=== PATIENT | male | born 1940 | race Caucasian/White ===

== ENCOUNTER → 2021-07-29 10:04 | Outpatient (BNVA) | payer MEDICARE, SELFPAY | PROVIDERS: PCP Internal Medicine; Visit Provider Urology | DX: R39.12 Poor urinary stream (principal); R97.20 Elevated prostate specific antigen [PSA] | CPT/HCPCS: Q3014 ==

== ENCOUNTER → 2021-09-28 10:44 | Outpatient (BNVA) | payer MEDICARE, OTHER, SELFPAY | PROVIDERS: PCP Internal Medicine; Visit Provider Urology | DX: R39.12 Poor urinary stream (principal); R97.20 Elevated prostate specific antigen [PSA] | CPT/HCPCS: Q3014 ==

== ENCOUNTER → 2022-03-30 11:12 | Outpatient (BNVA) | payer MEDICARE, OTHER, SELFPAY | PROVIDERS: PCP Internal Medicine; Visit Provider Urology | DX: R39.12 Poor urinary stream (principal); R97.20 Elevated prostate specific antigen [PSA] | CPT/HCPCS: 51798; 99212 ==

== ENCOUNTER 2023-05-24 09:09 | Outpatient (AMB) | payer MEDICARE, OTHER, SELFPAY ==
--- NOTE | 2023-05-24 09:18 | MHC.OFFVIS ---
Intake Intake Visit Reasons: PSA Follow Up(set) Intake Note: Patient is present for Follow Up PSA Urology Med: Tamsulosin Antibiotic Allergy: None Blood Thinner: Clopidogrel Pharmacy: [facility] Allergies No Known Allergies Allergy (Verified 05/24/23 09:22) HPI HPI Comments History of Present Illness Details Fredy MUNSON is a very pleasant male. He is a patient of Dr Bond. He is seen for the following urologic conditions. - elevated PSA - weakness of stream Twelve month follow-up A continues with effective emptying Low PSA can be deferred for 2 years Discussed his great grandchildren down in [place] Elevated PSA/Abnormal CHERYL:? PSA remains low Continue response to tamsulosin ? Laboratory investigations include?a total PSA ?07/25 0.5,?04/25 0.9, 07/28 0.9. 05/30 1.4 ? Imaging investigations include? a transrectal ultrasound ?Yes ? Date ?04/2018 ? Individualized Prostate Cancer Risk Calculator?>10% high risk.? A TRUS biopsy? has ?been performed and is negative 04/24 ? PSA at biopsy?23 ? Overall symptoms are?mild.? His prior IPSS was?mild.? Associated conditions? diabetes ?Yes - insulin for several years - medications include Invokana ? dyslipidemia ?No ? dysuria ?No ? erectile dysfunction ?Yes ? Therapeutic plan 12 month follow-up PVR PFSH Medical History Arthritis Diabetes mellitus, type II Surgical History History of surgery Review of Systems Const Denies chills and Denies fever(s) Card Reports no additional complaints and Denies syncope Resp Denies cough GI Denies abdominal pain and Denies heartburn Reports as per HPI and Denies change in libido Neuro Denies syncope Psych Denies change in libido Endo Denies change in libido Physical Exam Const General: cooperative, healthy appearing, comfortable and no acute distress Orientation/consciousness: patient oriented x3 HEENT Face and sinus: Yes normal facial exam Mouth: moist mucous membranes Neck Neck: Yes normal visual inspection, Yes full ROM and Yes trachea midline Chest Chest palpation & inspection: normal inspection of the chest Resp Effort & Inspection: normal respiratory effort, able to speak in complete sentences and no respiratory distress GI Inspection: Yes normal to inspection Back/Spine/Pelvis Cervical Spine: normal cervical lordosis Thoracic/Lumbar Spine: thoracic and lumbar spine normal to inspection Skin General skin exam: no rashes or lesions noted Neuro General: patient oriented x3, gait normal, tone normal and moves all extremities Extrem General: Yes normal to inspection and Yes capillary refill normal Assessment & Plan Assessment & Plan (1) Weak urinary stream: Code(s): R39.12 - Poor urinary stream (2) Elevated prostate specific antigen [PSA]: Code(s): R97.20 - Elevated prostate specific antigen [PSA] Plan 12 month follow-up Patient Instructions: Imaging studies, laboratory and physical exam results were discussed and reviewed in detail. No major barriers to patient understanding were identified. An opportunity to ask questions regarding the treatment plan was provided. All questions were answered. The patient expressed understanding and agreement with the above treatment plan. The patient is aware they should contact our office by phone for worsening of their current condition or the appearance of new urologic symptoms. Compliance is encouraged with any medications and followup testing that is ordered. It is a privilege to participate in the urologic care of your patient. If you have any questions or concerns regarding treatment for the above conditions, or other urologic issues, please do not hesitate to contact me. The office telephone contact is [phone]. This note is constructed using voice recognition software. While every effort has been made to ensure accuracy contract administration manager errors may have been included. Yours sincerely, Dr Pranav Mcghee MD, DEV [facility] - Urology Providers of Expert, Compassionate Care for the Genitourinary System Coding Level of Care Code Est Pt Level 4 (15662) Diagnoses Weak urinary stream R39.12 Elevated prostate specific antigen [PSA] R97.20
== END 2023-05-24 09:37 | disposition home or self-care (01) ==
PROVIDERS: PCP Internal Medicine; Visit Provider Urology
DX: R39.12 Poor urinary stream (principal); R97.20 Elevated prostate specific antigen [PSA]
CPT/HCPCS: 99213

== ENCOUNTER → 2023-05-24 09:09 | Outpatient (BNVA) | payer MEDICARE, OTHER, SELFPAY | PROVIDERS: PCP Internal Medicine; Visit Provider Urology ==

== ENCOUNTER 2024-05-27 14:29 | Outpatient (AMB) | payer MEDICARE, OTHER, SELFPAY ==
--- NOTE | 2024-05-27 14:34 | A.OFFVIS_ITS ---
Intake Visit Reasons: 1Y Follow Up-PVR Intake Note: Patient is present for 1Y Follow Up PVR Urology Med: Tamsulosin Antibiotic Allergy: None Blood Thinner: Clopidogrel Duplicating Machine Operator Required: No Allergies No Known Allergies Allergy (Verified 05/27/24 14:35) HPI Comments Details: Fredy MUNSON is a very pleasant male. He is a patient of Dr Bond. He is seen for the following urologic conditions. - elevated PSA - weakness of stream Twelve month follow-up PVR 0 cc UA positive glucose - on Invokana Low PSA can be deferred for 2 years Discussed his great grandchildren down in [place] Elevated PSA/Abnormal CHERYL:? PSA remains low Continue response to tamsulosin ? Laboratory investigations include?a total PSA ?07/25 0.5,?04/25 0.9, 07/28 0.9. 05/30 1.4 ? Imaging investigations include? a transrectal ultrasound ?Yes ? Date ?04/2018 ? Individualized Prostate Cancer Risk Calculator?>10% high risk.? A TRUS biopsy? has ?been performed and is negative 04/24 ? PSA at biopsy?23 ? Overall symptoms are?mild.? His prior IPSS was?mild.? Associated conditions? diabetes ?Yes - insulin for several years - medications include Invokana ? dyslipidemia ?No ? dysuria ?No ? erectile dysfunction ?Yes ? Therapeutic plan 12 month follow-up PVR PFSH Medical History Arthritis Diabetes mellitus, type II Elevated prostate specific antigen [PSA] Weak urinary stream Surgical History History of surgery Review of Systems Const Denies chills and Denies fever(s) Card Reports no additional complaints and Denies syncope Resp Denies cough GI Denies abdominal pain and Denies heartburn Reports as per HPI and Denies change in libido Neuro Denies syncope Psych Denies change in libido Endo Denies change in libido Physical Exam Const General: cooperative, healthy appearing, comfortable and no acute distress Orientation/consciousness: patient oriented x3 HEENT Face and sinus: Yes normal facial exam Mouth: moist mucous membranes Neck Neck: Yes normal visual inspection, Yes full ROM and Yes trachea midline Chest Chest palpation & inspection: normal inspection of the chest Resp Effort & Inspection: normal respiratory effort, able to speak in complete sentences and no respiratory distress GI Inspection: Yes normal to inspection Back/Spine/Pelvis Cervical Spine: normal cervical lordosis Thoracic/Lumbar Spine: thoracic and lumbar spine normal to inspection Skin General skin exam: no rashes or lesions noted Neuro General: patient oriented x3, gait normal, tone normal and moves all extremities Extrem General: Yes normal to inspection and Yes capillary refill normal Results AMB Urinalysis, Automated UA Leukoctes 0 Lakeshia/uL Last Edit by CATHY Thompson on 05/27/24 14:47 UA Nitrite Negative Last Edit by CATHY Thompson on 05/27/24 14:47 UA Urobilinogen 0.2 mg/dL Last Edit by CATHY Thompson on 05/27/24 14:4 7 UA Protein 0 mg/dL Last Edit by CATHY Thompson on 05/27/24 14:47 UA pH 5.0 Last Edit by CATHY Thompson on 05/27/24 14:47 UA Blood 0 Amauri/uL Last Edit by CATHY Thompson on 05/27/24 14:47 UA Specific [place] 1.015 Last Edit by CATHY Thompson on 05/27/24 14: 47 UA Ketone Negative Last Edit by CATHY Thompson on 05/27/24 14:47 UA Bilirubin 0 mg/dL Last Edit by CATHY Thompson on 05/27/24 14:47 UA Glucose 1000 mg/dL Last Edit by CATHY Thompson on 05/27/24 14:47 Results Reviewed Results Reviewed: Laboratory Last Values Urine pH (Auto) 5.0 08/20/24 14:46 Specific [place] (Auto) 1.015 05/27/24 14:46 Urine Protein (Auto) 0 mg/dL 05/27/24 14:46 Glucose (UA)(Auto) 1000 mg/dL 05/27/24 14:46 Urine Ketones (Auto) Negative 05/27/24 14:46 Urine Blood (Auto) 0 Amauri/uL 05/27/24 14:46 Urine Nitrite (Auto) Negative 05/27/24 14:46 Urine Bilirubin (Auto) 0 mg/dL 05/27/24 14:46 Urine Urobilinogen (Auto) 0.2 mg/dL 05/27/24 14:46 Leukocyte Esterase (Auto) 0 Lakeshia/uL 05/27/24 14:46 Assessment & Plan Assessment & Plan (1) Elevated prostate specific antigen [PSA]: Code(s): R97.20 - Elevated prostate specific antigen [PSA] Category: Medical (2) Weak urinary stream: Code(s): R39.12 - Poor urinary stream Category: Medical Plan Yearly follow-up PSA Orders: Orders AMB Urinalysis Automated 05/27/24 Z13.9 - Encounter for screening, unspecified Prostate Specific Antigen 364 Days R97.20 - Elevated prostate specific antigen [PSA] Patient Instructions: Imaging studies, laboratory and physical exam results were discussed and reviewed in detail. No major barriers to patient understanding were identified. An opportunity to ask questions regarding the treatment plan was provided. All questions were answered. The patient expressed understanding and agreement with the above treatment plan. The patient is aware they should contact our office by phone for worsening of their current condition or the appearance of new urologic symptoms. Compliance is encouraged with any medications and followup testing that is ordered. It is a privilege to participate in the urologic care of your patient. If you have any questions or concerns regarding treatment for the above conditions, or other urologic issues, please do not hesitate to contact me. The office telephone contact is [phone]. This note is constructed using voice recognition software. While every effort has been made to ensure accuracy vp treasurer errors may have been included. Yours sincerely, Dr Pranav Mcghee MD, DEV [facility] - Urology Providers of Expert, Compassionate Care for the Genitourinary System Coding Level of Care Code Est Pt Level 4 (30868) Diagnoses Elevated prostate specific antigen [PSA] R97.20 Weak urinary stream R39.12
== END 2024-05-27 15:03 | disposition home or self-care (01) ==
PROVIDERS: PCP Internal Medicine; Visit Provider Urology
DX: R97.20 Elevated prostate specific antigen [PSA] (principal); R39.12 Poor urinary stream
CPT/HCPCS: 99214

== ENCOUNTER → 2024-05-27 14:29 | Outpatient (BNVA) | payer MEDICARE, OTHER, SELFPAY | PROVIDERS: PCP Internal Medicine; Visit Provider Urology | DX: R97.20 Elevated prostate specific antigen [PSA] (principal); R39.12 Poor urinary stream | CPT/HCPCS: 81003; 99212 ==

== ENCOUNTER 2025-05-29 14:28 | Outpatient (AMB) | payer MEDICARE, OTHER, SELFPAY ==
--- NOTE | 2025-05-29 14:37 | MHC.OFFVIS ---
Intake Visit Reasons: 1y/PSA Intake Note: Patient is present for 1Y Follow Up Urology Med: Tamsulosin Antibiotic Allergy: None Blood Thinner: none Proof Carrier Required: No Accompanied by: Self / Same As Patient Allergies No Known Allergies Allergy (Verified 05/29/25 14:38) HPI Comments Details: Fredy MUNSON is a very pleasant male. He is a patient of Dr Bond. He is seen for the following urologic conditions. - elevated PSA - weakness of stream Twelve month follow-up Expresses weak stream less than 12 in Switch from tamsulosin to doxazosin 4 mg Plan bladder ultrasound Three-month follow-up office uroflow Discussed his great grandchildren down in [place] Elevated PSA/Abnormal CHERYL:? PSA remains low Continue response to tamsulosin ? Laboratory investigations include?a total PSA ?07/25 0.5,?04/25 0.9, 07/28 0.9. 05/30 1.4 ? Imaging investigations include? a transrectal ultrasound ?Yes ? Date ?04/2018 ? Individualized Prostate Cancer Risk Calculator?>10% high risk.? A TRUS biopsy? has ?been performed and is negative 04/24 ? PSA at biopsy?23 ? Overall symptoms are?mild.? His prior IPSS was?mild.? Associated conditions? diabetes ?Yes - insulin for several years - medications include Invokana ? dyslipidemia ?No ? dysuria ?No ? erectile dysfunction ?Yes ? Therapeutic plan 12 month follow-up PVR PFSH Medical History Arthritis Diabetes mellitus, type II Elevated prostate specific antigen [PSA] Weak urinary stream Surgical History History of surgery Review of Systems Const Denies chills and Denies fever(s) Card Reports no additional complaints and Denies syncope Resp Denies cough GI Denies abdominal pain and Denies heartburn Reports as per HPI and Denies change in libido Neuro Denies syncope Psych Denies change in libido Endo Denies change in libido Physical Exam Const General: cooperative, healthy appearing, comfortable and no acute distress Orientation/consciousness: patient oriented x3 HEENT Face and sinus: Yes normal facial exam Mouth: moist mucous membranes Neck Neck: Yes normal visual inspection, Yes full ROM and Yes trachea midline Chest Chest palpation & inspection: normal inspection of the chest Resp Effort & Inspection: normal respiratory effort, able to speak in complete sentences and no respiratory distress GI Inspection: Yes normal to inspection Back/Spine/Pelvis Cervical Spine: normal cervical lordosis Thoracic/Lumbar Spine: thoracic and lumbar spine normal to inspection Skin General skin exam: no rashes or lesions noted Neuro General: patient oriented x3, gait normal, tone normal and moves all extremities Extrem General: Yes normal to inspection and Yes capillary refill normal Assessment & Plan Assessment & Plan (1) Weak urinary stream: Code(s): R39.12 - Poor urinary stream Category: Medical Plan Switch alpha-peyton Plan ultrasound bladder Three-month follow-up uroflow Orders: Orders US bladder Today R39.12 - Poor urinary stream Medications: New doxazosin 4 mg PO BEDTIME 90 tabs 0RF 90 days R39.12 - Poor urinary stream Discontinued tamsulosin Discontinued Reason: Doctor's Order 0.4 mg PO BEDTIME 90 days 90 caps 3RF R39.12 - Poor urinary stream Patient Instructions: This note is constructed using voice recognition software. While every effort has been made to ensure accuracy set up mechanic heading machines errors may have been included. Imaging studies, laboratory and physical exam results were discussed and reviewed in detail. No major barriers to patient understanding were identified. An opportunity to ask questions regarding the treatment plan was provided. All questions were answered. The patient expressed understanding and agreement with the above treatment plan. The patient is aware they should contact our office by phone for worsening of their current condition or the appearance of new urologic symptoms. Compliance is encouraged with any medications and followup testing that is ordered. It is a privilege to participate in the urologic care of your patient. If you have any questions or concerns regarding treatment for the above conditions, or other urologic issues, please do not hesitate to contact me. The office telephone contact is [phone]. Sincerely, Dr Pranav Mcghee MD, DEV [facility] - Urology Compassionate Specialist Care for the Genitourinary System Coding Level of Care Code Est Pt Level 4 (33647) Diagnoses Weak urinary stream R39.12
== END 2025-05-29 15:10 | disposition home or self-care (01) ==
LOC: HO.HUSH 14:28
PROVIDERS: PCP Internal Medicine; Visit Provider Urology
DX: R39.12 Poor urinary stream (principal)
CPT/HCPCS: 99214

== ENCOUNTER → 2025-05-29 14:28 | Outpatient (BNVA) | payer MEDICARE, OTHER, SELFPAY | PROVIDERS: PCP Internal Medicine; Visit Provider Urology | DX: R39.12 Poor urinary stream (principal) | CPT/HCPCS: 99212 ==

== ENCOUNTER 2025-08-24 12:53 | Outpatient (REF) | payer MEDICARE, OTHER, SELFPAY ==
--- NOTE | ~2025-08-24 | US_ITS ---
CLINICAL HISTORY: R39.12 - Poor urinary stream Ultrasound prostate Comparison: None provided Findings: Heterogeneous prostate without focal lesion. Prostate volume 26 mL. Prostate 3.8 x 3.2 x 4.1 cm. Impression: No significant abnormality US bladder Comparison: None provided Findings: Small amount of internal debris in bladder. Question prior infection or hemorrhage. No other significant abnormality. Prevoid volume 214 mL. Post void volume 34 mL. Bilateral ureteral jets visualized. Impression: Minimal debris in bladder lumen Otherwise unremarkable This document has been electronically signed by: Kendall Cárdenas MD on 08/24/2025 20:05:13
--- OUTSIDE RECORDS SUMMARY | 2025-08-25 01:34 | XMS_ITS | Data Portability ---
Author Organization [facility], [facility] Specimen Accessioner Address [address] [place] [address] Assessment No assessment recorded. Plan of Treatment Reminders Order Date Submit Date Provider Last Modified By Organization Details Last Modified Time Details Appointments None record ed. Lab None record ed. Referral None record ed. Procedures None record ed. Surgeries None record ed. Imaging None record ed. Medication Orders None record ed. Patient TargetsNo targets recorded. Patient InstructionsNo instructions recorded. Reason for Referral None Reported. Results Created Date Observation Date Name Description Value Unit Range Abnormal Flag Note LastModifiedBy Organization Detail LastModifiedTime 09/28/20 20 09/30/2020 SARS CoV 2 RNA (COVI D-19) , QL, legal aide-P CR, respi rator y speci men sars cov 2 RNA NOT DETECT ED not detect ed normal A Not Detec rimma (nega tive) test resul t for this test means that SARS- CoV-2 RNA was not prese nt in the speci men above the limit of detec tion. A negat estevan resul t does not rule out the possi bilit y of COVID -19 and shoul d not be used as the sole basis for treat ment or patie nt manag ement decis ions. If COVID -19 is still suspe cted, based on expos ure histo ry toget her with other clini rocío findi ngs, re-te sting shoul d be consi dered in consu ltati on with publi c healt autho ritie s. Labor atory test resul ts shoul d alway s be consi dered in the shahla xt of clini rocío obser vatio ns and epide miolo gical data in noemi cosme a final diagn osis and patie nt manag ement decis ions. Pleas e revie w the Fact Sheet s and FDA autho rized label ing avail able for healt h care provi ders and patie nts using the gary robledo websi efren: https ://ww w.que stdia gnost ics.c om/ho me/Co vid-1 9/HCP /Ques tIVD/ fact- sheet .html https ://ww w.que stdia gnost ics.c om/ho me/Co vid-1 9/Pat ients / [facility] IVD/f act-s heet. html This test has been autho rized by the FDA under an Emerg ency Use Autho rizat ion (EUA) for use by autho rized labor atori es. Due to the curre nt publi c healt h emerg ency, [facility] is recei ving a high volum e of sampl es from a wide varie ty of swabs and media for COVID -19 testi ng. In order to serve patie nts durin g this publi c healt h crisi s, sampl es from appro priat e clini rocío sourc es are being teste d. Negat estevan test resul ts deriv ed from speci mens recei jazz in non-c ommer ciall y manuf actur ed viral colle ction and trans port media , or in media and sampl e colle ction kits not yet autho rized by FDA for COVID -19 testi ng shoul d be cauti ously evalu ated and the patie nt poten tiall y subje cted to extra preca ution s such as addit ional clini rocío monit oring , inclu ding colle ction of an addit ional speci men. Metho dolog y: Nucle ic Acid Ampli ficat ion Test (NAAT ) inclu shi RT-PC R or TMA Addit ional infor katarina cueva about COVID -19 can be found at the [facility] websi te: www.Q uestD iagno stics .com/ Covid 19. Not Available [employer] [place] [facility] [address], [place], [address], 09/30/2020 08:29:23 Result Notes None recorded. Problems No Known Problems Medical Equipment None Reported. Allergies No known drug allergies Medications Name Sig Start Date Stop Date Status Note LastModified by Organization Details LastModified Time doxycycline hyclate 100 mg capsule active Not Available Not Available Not Available isosorbide mononitrate ER 30 mg tablet,extended release 24 hr TK 1 T PO BID active Not Available Not Available No t Available clopidogrel 75 mg tablet active Not Available Not Available No t Available pantoprazole 20 mg tablet,delayed release active Not Available Not Available Not Available tamsulosin 0.4 mg capsule active Not Available Not Available N ot Available telmisartan 80 mg tablet active Not Available Not Available No t Available nitroglycerin 0.4 mg sublingual tablet active Not Available Not Available Not Available metoprolol succinate ER 25 mg tablet,extended release 24 hr active Not Available Not Availabl e Not Available oxycodone 5 mg tablet TAKE 1 TABLET BY MOUTH EVERY 6 HOURS NEEDED FOR SEVERE PAIN active Not Available Not Available No t Available rosuvastatin 20 mg tablet active Not Available Not Available No t Available rosuvastatin 40 mg tablet active Not Available Not Available No t Available BD Ultra-Fine Short Pen Needle 31 gauge x 5/16 active Not Available Not Available Not Available febuxostat 40 mg tablet active Not Available Not Available No t Available BD Ultra-Fine Nickie Pen Needle 32 gauge x 5/32 active Not Available Not Available Not Available Repatha Syringe 140 mg/mL subcutaneous syringe active Not Available Not Available Not Available Repatha SureClick 140 mg/mL subcutaneous pen injector ADM 1 ML SC Q 2 WKS active Not Available Not Available No t Available Invokamet XR 150 mg-1,000 mg tablet, extended release active Not Available Not Available Not Available Soliqua 100/33 100 unit-33 mcg/mL subcutaneous insulin pen active Not Available Not Available Not Available Accu-Chek Guide test strips active Not Available Not Available Not Available Vitals Date Recorded Heart rate Oxygen saturation Oxygen saturation in Arterial blood by Pulse oximetry Body temperature Provider Name and Address Organization Details Last Updated DateTime 09/28/2020 99 /min 97 % 97 % 97 [degF] Sunni mazariegos, [employer] [address] [place], [address], [place] [facility] [employer] [facility] 0 10:58:26 Social History None recorded. Functional Status None recorded. Mental Status None recorded. Family History Nothing Reported. Medical History No medical history recorded. Immunizations Vaccine Type Date Status Note Provider Nam e and Address Organization Details Recorded Time COVID-19, mRNA, LNP-S, PF, 30 mcg/0.3 mL dose, miguel-sucrose 01/20/2022 completed SIMA Raines- [address] [place], [address], [facility] - [facility] 01/20/2022 14:42:02 Past Encounters Encounter ID Performer Location Encounter Start Date Encounter Closed Date Diagnosis/Indication Diagnosis SNOMED-CT Code Diagnosis ICD10 Code Diagnosis IMO Codes Diagnosis Note [id number] Reji Moss MD [facility] [address],[place] [address] 09/28/2020 10:57:52 09/28/2020 14:25:33 Coronavirus infection suspected 380487219 Z03.818 r/o COVID-19 Pt tolerated the nasal swab test well- states no concerns [id number] SIMA Kern [facility] [address],[place] [address] 01/20/2022 14:27:35 01/20/2022 14:42:19 Administration of SARS-CoV-2 antigen vaccine 072066818 Z23 Patient tolerated the injection well, no immediate reaction occurred. Explained the common side effects associated with the vaccine. Vaccinatio n card updated and booster is complete at this time. Health Concerns Section Related Observation LastModified by Organization Detai ls LastModified Time None Recorded Concern Status LastModified by Organization Details LastModified Time None Recorded Advance Directives Directive None Recorded Payers Insurance Date Sequence Insurance Name Policy Number Policy Perry Covered Member ID Perry Member ID Guarantor Name 01/19/2022 MEDICARE A-[place]: [facility] Fredy Vinson [id number] Fredy Vinson 01/24/2022 1 MEDICARE B-[place]: [employer] Fredy Vinson [id number] Fredy Vinson Notes Date Note Type Note Provider Name a nd Address Organization Details Recorded Time 09/28/2020 text/html ROS as noted in the HPI Pt is here outside the [facility] for a covid nasal swab test. Pt denies exposure and covid/cold/flu symptoms. Kim Felix, [facility] [address] [place], [address], [facility] [employer] [facility] 09/28/2020 14:13:16 01/20/2022 text/html ROS as noted in the HPI Patient is present at the [facility] in [place] for a covid Pfizer booster vaccine. It has been at least 4 months since the patient s last dose. Pre-vaccination screening reviewed with the patient Nikkie Alfaro, [facility]- [address] [place], [address], [facility] [employer] 01/20/2022 14:42:07
== END 2025-08-24 12:54 | disposition home or self-care (01) ==
LOC: HO.HMGCX 12:53
PROVIDERS: PCP Internal Medicine; Visit Provider Urology
DX: R39.12 Poor urinary stream (principal)
CPT/HCPCS: 76857

== ENCOUNTER → 2025-08-24 12:56 | Outpatient (BNV) | payer MEDICARE, OTHER, SELFPAY | PROVIDERS: PCP Internal Medicine; Visit Provider Radiology Diagnostic Radiology | DX: R39.12 Poor urinary stream (principal) | CPT/HCPCS: 76857 ==

== ENCOUNTER 2025-09-01 13:52 | Outpatient (AMB) | payer MEDICARE, OTHER, SELFPAY ==
--- OUTSIDE RECORDS SUMMARY | 2024-07-08 16:47 | XMS_ITS | Encounter Summary ---
Author Organization [facility] Address [address] [place] [address] Care Team Providers Care Plant Manager Name Role Phone Alexander Hoover MD Primary Care Provider [phone] Encounter Details Date Type Department Care Team (Latest Contact Info) Description 07/08/2024 5:47 PM EDT Hospital Encounter TH HISTORIC ENCOUNTERS EASTERN CONVERSION ONLY Alexander Hoover MD [address] [address] Primary osteoarthritis, right ankle and foot Social History Tobacco Use Types Packs/Day Years Used Date Smoking Tobacco: Former Cigarettes 1 Q uit: 10/08/1983 Smokeless Tobacco: Never Alcohol Use Standard Drinks/Week Comments Yes 0 (1 standard drink = 0.6 oz pur e alcohol) rare Sex and Gender Information Value Date Recorded Sex Assigned at Not on file Legal Sex Male 6:26 PM EST Gender Identity Not on file Sexual Orientation Not on file documented as of this encounter Plan of Treatment Not on file documented as of this encounter Procedures Procedure Name Priority Date/Time Associated Diagnosis Comments CR FOOT RT MIN 3 VIEWS Routine 07/09/2024 8:05 AM EDT Primary osteoarthritis, right ankle and foot documented in this encounter Results * CR FOOT RT MIN 3 VIEWS (07/09/2024 8:05 AM EDT) Anatomical Region Laterality Modality Radiographic Kacy ging 07/08/2024 5:54 PM EDT Narrative 07/09/2024 8:05 AM EDT [facility] Diagnostic Imaging Department [address] [place] [address] Patient: NATALYA MUNSON Zahira Akhtar./Age/Sex: 1940 - 83 - M Unit#: [id number] Location/Status: SPDIGEN/REG CLI Mnemonic/Ordering Site: FOOTRT/SPDI Ordering Physician: ALEXANDER HOOVER MD CR Foot RT Min 3 Views - 07/08/241802 Report Status:Signed HISTORY: The patient is an 83-year-old diabetic male with provided history of a possible foreign body at the medial plantar aspect of the right foot. FINDINGS: AP, lateral, and oblique views of the right foot are obtained. No prior study is available for comparison. This examination demonstrates no radiopaque foreign body. No fracture or dislocation is seen. Moderate osteoarthritis of the first interphalangeal joint is noted with joint space narrowing and marginal osteophytes. No soft tissue abnormality is seen. IMPRESSION: No radiopaque foreign body is demonstrated. No acute bony abnormality. There is moderate osteoarthritis of the first interphalangeal joint. Code 72508 Dictating Physician: DELMI CRAFT MD Electronically Signed by: DELMI CRAFT MD Dic Date/Time: 07/09/24802 Sign date/Time: 07/09/24804 Procedure Note Delmi Craft MD - 08/05/2024 [facility] Diagnostic Imaging Department [address] [place] [id number] Patient: NATALYA MUNSON Zahira LuceroB./Age/Sex: 1940 - 83 - M Unit#: [id number] Location/Status: SPDIGEN/REG CLI Mnemonic/Ordering Site: FOOTRT/SPDI Ordering Physician: ALEXANDER HOOVER MD CR Foot RT Min 3 Views - 07/08/24 3346 Report Status:Signed HISTORY: The patient is an 83-year-old diabetic male with provided historyof a possible foreign body at the medial plantar aspect of the right foot. FINDINGS: AP, lateral, and oblique views of the right foot are obtained.No prior study is available for comparison. This examination demonstratesno radiopaque foreign body. No fracture or dislocation is seen. Moderate osteoarthritis of the first interphalangeal joint is noted with jointspace narrowing and marginal osteophytes. No soft tissue abnormality is seen. IMPRESSION: No radiopaque foreign body is demonstrated. No acute bony abnormality. There is moderate osteoarthritis of the firstinterphalangeal joint. Code 39198 Dictating Physician: DELMI CRAFT MD Electronically Signed by: DELMI CRAFT MD Dic Date/Time: 07/09/24802 Sign date/Time: 07/09/24804 Alexander Hoover MD IMG XR PROCEDURES Final Result documented in this encounter Visit Diagnoses Diagnosis Primary osteoarthritis, right ankle and foot documented in this encounter Care Teams Plant Manager Relationship Specialty Start Date End Date Alexander Hoover MD PCP - General Internal Medicine 12/28/11 03/04/25 documented as of this encounter
--- OUTSIDE RECORDS SUMMARY | 2025-05-05 08:15 | XMS_ITS ---
Author Organization [facility] Address [address] [phone] Care Team Providers Care Occupational Health Physician Name Role Phone Alexander Hoover Primary Care Provider ALEXANDER HOOVER MD Unavailable Unavailable REASON FOR VISIT med list update Medications Medication SIG (Take, Route, Frequency, Duration) Notes Start Date End Date Status Pantoprazole Sodium 20 mg TAKE 1 TABLET DAILY Active Invokamet XR 150-1000 mg TAKE 2 TABLETS ONCE DAILY WITH THE MORNING MEAL Active Dexcom G7 Tobacco Sampler - as directed 07/07/2024 Active BD Pen Needle Short U/F 31G X 8 MM DIRECTED ONCE DAILY; Duration: 31 days Active Rosuvastatin Calcium 20 mg TAKE 1 TABLET DAILY Active Isosorbide Mononitrate ER 30 MG 1 tablet in the morning Orally Once a day; Duration: 90 days Active Dexcom G7 Sensor - apply a new sensor every 10 days; Duration: 30 days 05/07/2024 Active Ozempic (1 MG/DOSE) 4 MG/3ML 1 mg Subcutaneous Once a Week 06/17/2024 Active Xarelto 2.5 mg TAKE 1 TABLET TWICE A DAY Active Lantus SoloStar 100 UNIT/ML 36 units Subcutaneous daily; Duration: 90 days 06/27/2024 Active Aspirin 81 MG 1 tablet Orally Once a day Active Ferrous Sulfate 325 (65 Fe) MG 1 tablet Orally Once a day; Duration: 30 day(s) Active Accu-Chek Softclix Lancets - TEST TWO TIMES A DAY DIRECTED; Duration: 90 Dx:E11.22 Active Accu-Chek Guide - TEST 3 TIMES A DAY A S DIRECTED; Duration: 99 Dx: E11.22 Active Metoprolol Succinate ER 25 MG 0.5 Tablet Orally Once a day 08/28/2016 Active Vitamin B12 1000 MCG 1 tablet Orally Onc e a day; Duration: 30 day(s) Active Accu-Chek Stacie - as directed In Vitro 11/09/2020 Active Nitroglycerin 0.4 MG as directed Sublingual Once a day Active Magnesium 400 MG 1 capsule with a jg l Orally Once a day Active Vitamin D 125 MCG (5000 UT) 1 capsule Orally Once a day Active Testosterone 40.5 MG/2.5GM (1.62%) 2 packets to skin in the morning to shoulder, upper arms or abdomen Transdermal Once a day; Duration: 90 days 11/04/2024 Active Repatha 140 MG/ML 1 mL Subcutaneous Every 2 Weeks; Duration: 90 days Active Colcrys 0.6 MG 1 tablet Orally bid; Duration: 60 days Not-Taking Encounters Encounter Location Date Provider Diagnosis Alexander Hoover MD [address] [place] [address] [place] [phone] 05/05/2025 Alexander Hoover Plan Of Treatment Next Appt Details Provider Name:Alexander Hoover , 12/24/2025 01:00:00 PM, [address] [place] [address], [phone], Provider Name:Alexander Hoover , 02/23/2026 02:00:00 PM, [address] [place] [address], [phone], Progress Notes * Fredy MUNSON MDOB: 9 (85 yo M)Acc No.[id number]:05/05/2025 Progress Note Patient: Radha OSMINFredy Provider: Everardo Hoover MD :1940 A ge:84 Y S ex:Male Date:05/05/2025 Address:[address] [place] [address] [id number] Subjective: * Chief Complaints: * 1 . Med list update. * Medical History: * Medications: T aking Vitamin D 125 MCG (5000 UT) Capsule 1 capsule Orally Once a day , Taking Magnesium 400 MG Capsule 1 capsule with a meal Orally Once a day , Taking Vitamin B12 1000 MCG Tablet Extended Release 1 tablet Orally Once a day , Taking Accu-Chek Stacie - Device as directed In Vitro , Taking Nitroglycerin 0.4 MG Tablet Sublingual as directed Sublingual Once a day , Taking Metoprolol Succinate ER 25 MG Tablet Extended Release 24 Hour 0.5 Tablet Orally Once a day , Taking Aspirin 81 MG Tablet 1 tablet Orally Once a day , Taking Ferrous Sulfate 325 (65 Fe) MG Tablet Delayed Release 1 tablet Orally Once a day , Taking Accu-Chek Softclix Lancets - Miscellaneous TEST TWO TIMES A DAY DIRECTED , Notes to Pharmacist: Dx:E11.22, Taking Accu-Chek Guide - Strip TEST 3 TIMES A DAY DIRECTED , Notes to Pharmacist: Dx: E11.22, Taking Dexcom G7 Sensor - Miscellaneous apply a new sensor every 10 days , Taking Ozempic (1 MG/DOSE) 4 MG/3ML Solution Pen-injector 1 mg Subcutaneous Once a Week , Taking Xarelto 2.5 mg Tablet TAKE 1 TABLET TWICE A DAY , Taking Lantus SoloStar 100 UNIT/ML Solution Pen-injector 36 units Subcutaneous daily , Taking Isosorbide Mononitrate ER 30 MG Tablet Extended Release 24 Hour 1 tablet in the morning Orally Once a day , Taking Dexcom G7 Tobacco Sampler - Device as directed , Taking BD Pen Needle Short U/F 31G X 8 MM Miscellaneous DIRECTED ONCE DAILY , Taking Rosuvastatin Calcium 20 mg Tablet TAKE 1 TABLET DAILY , Taking Pantoprazole Sodium 20 mg Tablet Delayed Release TAKE 1 TABLET DAILY , Taking Invokamet XR 150-1000 mg Tablet Extended Release 24 Hour TAKE 2 TABLETS ONCE DAILY WITH THE MORNING MEAL , Taking Testosterone 40.5 MG/2.5GM (1.62%) Gel 2 packets to skin in the morning to shoulder, upper arms or abdomen Transdermal Once a day , Taking Repatha 140 MG/ML Solution Prefilled Syringe 1 mL Subcutaneous Every 2 Weeks , Not-Taking/PRN Colcrys 0.6 MG Tablet 1 tablet Orally bid Objective: * Vitals: Past Vitals:* 03/19/2025 Temp:97.4F, HR:71/min, Wt:16 4lbs, BMI:23.53Index, Ht:70in, Oxygen sat %:96% * 12/18/2024 Temp:96.6F, HR:55/min, Wt:16 3lbs, BMI: 23.39 Index, Ht: 70 in, Oxygen sat %:98% * 11/04/2024 Temp:96.2F, HR:88/min, BP:Si tting Right Arm: 120/64mm Hg, Wt:165lbs, BMI:23.67Index, Ht:70in, Oxygen sat %:96% Assessment: Plan: * Treatment: * Images: Billing Information: * Visit Code: * Procedure Codes: * Electronic signature of Ashli Hoover MD on 09/01/2025 at 05:46 PM EST Sign off status: Pending * Provider: Everardo Hoover MD Date: 0 05/05/2025 Generated for Price simeon/Gurvinder/Geoff on: 1 11/01/2024 05:46 PM EST
--- OUTSIDE RECORDS SUMMARY | 2025-05-20 09:30 | XMS_ITS ---
Author Organization [facility] Address [address] [phone] Care Team Providers Care Porcelain Enamel Laborer Name Role Phone Alexander Hoover Primary Care Provider ALEXANDER HOOVER MD Unavailable Unavailable REASON FOR VISIT 1m f/u MOCA Encounters Encounter Location Date Provider Diagnosis Alexander Hoover MD [address] [place] [address] [place] [phone] 05/20/2025 Alexander Hoover Plan Of Treatment Next Appt Details Provider Name:Alexander Hoover , 12/24/2025 01:00:00 PM, [address] [place] [address], [phone], Provider Name:Alexander Hoover , 02/23/2026 02:00:00 PM, [address] [place] [address], [phone], Progress Notes * Fredy MUNSON MDOB: 9 (85 yo M)Acc No.[id number]:05/20/2025 Patient: Radha Fredy SOLORIO Provider: Everardo Hovoer MD Resource:Lynsey Liang :1940 A ge:84 Y S ex:Male Date:05/20/2025 Address: [address], [id number] Subjective: * Chief Complaints: * 1 . 1m f/u MOCA. * Medical History: Objective: * Vitals: Past Vitals:* 05/11/2025 Temp:96.8F, HR:51/min, BP:Si tting Right Arm: 114/58mm Hg, Wt:158lbs, BMI:22.67Index, Ht:70in, Oxygen sat %:98% * 03/19/2025 Temp:97.4F, HR:71/min, Wt:16 4lbs, BMI:23.53Index, Ht:70in, Oxygen sat %:96% * 12/18/2024 Temp:96.6F, HR:55/min, Wt:16 3lbs, BMI: 23.39 Index, Ht: 70 in, Oxygen sat %:98% Assessment: Plan: * Treatment: * Images: Billing Information: * Visit Code: * Procedure Codes: * Electronic signature of Ashli Hoover MD on 09/01/2025 at 05:45 PM EST Sign off status: Pending * Provider: Everardo Hoover MD Date: 0 05/20/2025 Generated for Price simeon/Gurvinder/Geoff on: 11/01/2024 05:45 PM EST
--- OUTSIDE RECORDS SUMMARY | 2025-07-30 08:30 | XMS_ITS ---
Author Organization [facility] Address [address] [id number] Care Team Providers Care Cdl Service Technician Name Role Phone Alexander Hoover Primary Care Provider ALEXANDER HOOVER MD Unavailable Unavailable REASON FOR VISIT 2m f/u Diabetes Encounters Encounter Location Date Provider Diagnosis Alexander Hoover MD [facility] [address] [place] [phone] 07/30/2025 Alexander Hoover Plan Of Treatment Next Appt Details Provider Name:Alexander Hoover , 12/24/2025 01:00:00 PM, [address] [place] [address], [address], [phone], Provider Name:Alexander Hoover , 02/23/2026 02:00:00 PM, [address] [place] [address], [phone], Progress Notes * Fredy MUNSON MDOB: (85 yo M)Acc No.[id number]:07/30/2025 Progress Notes Patient: Radha SOLORIO Fredy Rodriges Provider: Everardo Hoover MD :1940 A ge:84 Y S ex:Male Date:07/30/2025 Address: [address], [id number] Subjective: * Chief Complaints: * 1 . 2m f/u Diabetes. * Medical History: Objective: * Vitals: Past [...] Pending * Provider: Everardo Hoover MD Date: Generated for Price simeon/Gurvinder/Geoff on: 11/01/2024 05:45 PM EST
--- NOTE | 2025-09-01 14:06 | A.OFFVIS_ITS ---
Intake Visit Reasons: Uroflow/US Intake Note: Patient is present for URO FLOW Urology Med: Testosterone Doxazosin Antibiotic Allergy: None Blood Thinner: none Imaging : Bladder Ultrasound 08/24/25 PVR: 23 mls Operating Room Manager Required: No Accompanied by: Self / Same As Patient Allergies No Known Allergies Allergy (Verified 05/29/25 14:38) HPI Comments Details: Fredy MUNSON is a very pleasant male. He is a patient of Dr Bond. He is seen for the following urologic conditions. - elevated PSA - weakness of stream Follow-up from uroflow Q max 18, average flow 5. Voided volume 125 cc. Prolonged void time. below 50th percentile average flow however Q max was within acceptable range. Doxazosin 4 mg Bladder ultrasound effective emptying. Prostate volume 25 cc. He wants to continue with current medication Feels it is an improvement He just found out his daughter was in a MVA and is in ICU. The great granddaughter had been in the car. Elevated PSA/Abnormal CHERYL:? PSA remains low Continue response to tamsulosin ? Laboratory investigations include?a total PSA ?07/25 0.5,?04/25 0.9, 07/28 0.9. 05/30 1.4 ? Imaging investigations include? a transrectal ultrasound ?Yes ? Date ?04/2018 ? Individualized Prostate Cancer Risk Calculator?>10% high risk.? A TRUS biopsy? has ?been performed and is negative 04/24 ? PSA at biopsy?23 ? Overall symptoms are?mild.? His prior IPSS was?mild.? Associated conditions? diabetes ?Yes - insulin for several years - medications include Invokana ? dyslipidemia ?No ? dysuria ?No ? erectile dysfunction ?Yes ? Therapeutic plan 12 month follow-up PVR PFS Medical History Arthritis Diabetes mellitus, type II Elevated prostate specific antigen [PSA] Weak urinary stream Surgical History History of surgery Review of Systems Const Denies chills and Denies fever(s) Card Reports no additional complaints and Denies syncope Resp Denies cough GI Denies abdominal pain and Denies heartburn Reports as per HPI and Denies change in libido Neuro Denies syncope Psych Denies change in libido Endo Denies change in libido Physical Exam Const General: cooperative, healthy appearing, comfortable and no acute distress Orientation/consciousness: patient oriented x3 HEENT Face and sinus: Yes normal facial exam Mouth: moist mucous membranes Neck Neck: Yes normal visual inspection, Yes full ROM and Yes trachea midline Chest Chest palpation & inspection: normal inspection of the chest Resp Effort & Inspection: normal respiratory effort, able to speak in complete sentences and no respiratory distress GI Inspection: Yes normal to inspection Back/Spine/Pelvis Cervical Spine: normal cervical lordosis Thoracic/Lumbar Spine: thoracic and lumbar spine normal to inspection Skin General skin exam: no rashes or lesions noted Neuro General: patient oriented x3, gait normal, tone normal and moves all extremities Extrem General: Yes normal to inspection and Yes capillary refill normal Office Procedures Post Void Residual Post Residual Void Post Void Residual (PVR): 23 [id number] Void Residual by ultrasound Assessment & Plan Assessment & Plan (1) Elevated prostate specific antigen [PSA]: Code(s): R97.20 - Elevated prostate specific antigen [PSA] Category: Medical (2) Weak urinary stream: Code(s): R39.12 - Poor urinary stream Category: Medical Plan Twelve month follow-up Medications: Refilled doxazosin 4 mg PO BEDTIME 90 tabs 3RF 90 days R39.12 - Poor urinary stream Patient Instructions: This note is constructed using voice recognition software. While every effort has been made to ensure accuracy shipwright apprentice errors may have been included. Imaging studies, laboratory and physical exam results were discussed and reviewed in detail. No major barriers to patient understanding were identified. An opportunity to ask questions regarding the treatment plan was provided. All questions were answered. The patient expressed understanding and agreement with the above treatment plan. The patient is aware they should contact our office by phone for worsening of their current condition or the appearance of new urologic symptoms. Compliance is encouraged with any medications and followup testing that is ordered. It is a privilege to participate in the urologic care of your patient. If you have any questions or concerns regarding treatment for the above conditions, or other urologic issues, please do not hesitate to contact me. The office telephone contact is [phone]. Sincerely, Dr Pranav Mcghee MD, DEV [facility] - Urology Compassionate Specialist Care for the Genitourinary System Coding Level of Care Code Complex visit Add On G2211 Diagnoses Elevated prostate specific antigen [PSA] R97.20 Weak urinary stream R39.12 CPT Codes Post Residual Void - PVR CPT Code: 00765-Kbod Void Residual by ultrasound ([id number])
--- OUTSIDE RECORDS SUMMARY | 2025-09-01 17:45 | XMS_ITS | Patient Health Record ---
Author Organization [facility] Address [address] [place] [id number] Care Team Providers Care Burlapper Name Role Phone [facility] Primary Care Provider ALEXANDER HOOVER MD Unavailable Unavailable Allergies Allergen (clinical drug ingredient) Drug/Non Drug Allergy documented on EMR Reaction Allergy Type Onset Date Status atorvastatin Atorvastatin Calcium Headache Drug Allergy Active lisinopril Lisinopril cough Drug Allergy Activ e rosuvastatin Rosuvastatin Calcium Headache Drug Allergy Active Results Component Value Reference Range Notes Hemoglobin A1C Reviewed date:12/21/2024 12:37:38 PM Interpretation: Performing Lab: Notes/Report: DCA Travis ([facility] Eagle)Alexander MD Lot: [id number] Urinalysis, Complete-[id number] Reviewed date:12/31/2024 06:20:19 PM Interpretation: Performing Lab:[facility], [address] [place] [address], [place], Phone - [phone], Director - Debra Notes/Report: Test(s) 800384-Zeawoalxignr, Total, LC/MS; [id number] was developed and its performance characteristics determined by [facility]. It has not been cleared or approved by the Food and Drug Administration. Test(s) 882857-Givgseyymsqd, Total, LC/MS; [id number] was developed and its performance characteristics determined by [facility]. It has not been cleared or approved by the Food and Drug Administration. Specific [place] 1.026 1.005-1.030 pH 5.5 5.0-7.5 Urine-Color Yellow Yellow Appearance Clear Clear WBC Esterase Negative Negative Protein Negative Negative/Trace Glucose 3+ Negative Ketones Negative Negative Occult Blood Negative Negative Bilirubin Negative Negative Urobilinogen,Semi-Qn 0.2 0.2-1.0 mg/dL Nitrite, Urine Positive Negative Microscopic Examination See below: Micr oscopic was indicated and was performed. WBC None seen 0 - 5 /hpf RBC None seen 0 - 2 /hpf Epithelial Cells (non renal) None seen 0 - 10 /hpf Casts None seen None seen /lpf Mucus Threads Present Not Estab. Bacteria None seen None seen/Few CBC With Differential/Platel et-[id number] Reviewed date:12/31/2024 06:20:19 PM Interpretation: Performing Lab:[facility] [place], [address], [place], Phone - [phone], Director - Debra Notes/Report: Test(s) 975674-Aedmnvhxbtdi, Total, LC/MS; [id number]-[id number] was developed and its performance characteristics determined by [facility]. It has not been cleared or approved by the Food and Drug Administration. WBC 6.5 3.4-10.8 x10E3/uL RBC 5.30 4.14-5.80 x10E6/uL Hemoglobin 14.7 13.0-17.7 g/dL Hematocrit 45.9 37.5-51.0 % MCV 87 79-97 fL MCH 27.7 26.6-33.0 pg MCHC 32.0 31.5-35.7 g/dL RDW 13.6 11.6-15.4 % Platelets 128 150-450 x10E3/uL Neutrophils 69 Not Estab. % Lymphs 22 Not Estab. % Monocytes 8 Not Estab. % Eos 1 Not Estab. % Basos 0 Not Estab. % Neutrophils (Absolute) 4.4 1.4-7.0 x10E3/uL Lymphs (Absolute) 1.4 0.7-3.1 x10E3/uL Monocytes(Absolute) 0.5 0.1-0.9 x10E3/uL Eos (Absolute) 0.1 0.0-0.4 x10E3/uL Baso (Absolute) 0.0 0.0-0.2 x10E3/uL Immature Granulocytes 0 Not Estab. % Immature Grans (Abs) 0.0 0.0-0.1 x10E3/uL Vitamin D, 27-Gborowr-[id number] Reviewed date:12/31/2024 06:20:20 PM Interpretation: Performing Lab:[facility] [place], [address] [facility], [place], Phone - [phone], Director - Debra Notes/Report: Test(s) 902087-Wjggxwthaiik, Total, LC/MS; [id number]-[id number] was developed and its performance characteristics determined by [facility]. It has not been cleared or approved by the Food and Drug Administration. Vitamin D, 25-Hydroxy 50.7 30.0-100.0 ng/mL Vitamin D deficiency has been defined by the [place] of Medicine and an Endocrine Society practice guideline as a level of serum 25-OH vitamin D less than 20 ng/mL (1,2). The Endocrine Society went on to further define vitamin D insufficiency as a level between 21 and 29 ng/mL (2). 1. IOM ([place] of Medicine). 2010. Dietary reference intakes for calcium and D. [place]: The National Academies Press. 2. Clarence MF, Sera TERRY, Haley BASSETT, et al. Evaluation, treatment, and prevention of vitamin D deficiency: an Endocrine Society clinical practice guideline. JCEM. 2010; 96(7):1911-30. Comp. Metabolic Panel (14)-3 97120 Reviewed date:12/31/2024 06:20:20 PM Interpretation: Performing Lab:[facility] [place], [address] [facility], [place], Phone - [phone], Director - Debra Notes/Report: Test(s) 237629-Wlzixojkpzpg, Total, LC/MS; [id number] was developed and its performance characteristics determined by [facility]. It has not been cleared or approved by the Food and Drug Administration. Glucose 143 70-99 mg/dL BUN 19 8-27 mg/dL Creatinine 1.29 0.76-1.27 mg/dL eGFR 54 >59 mL/min/1.73 BUN/Creatinine Ratio 15 10-24 Sodium 145 134-144 mmol/L Potassium 4.8 3.5-5.2 mmol/L Chloride 106 96-106 mmol/L Carbon Dioxide, Total 19 20-29 mmol/L Calcium 9.9 8.6-10.2 mg/dL Protein, Total 7.4 6.0-8.5 g/dL Albumin 5.1 3.7-4.7 g/dL Globulin, Total 2.3 1.5-4.5 g/dL Bilirubin, Total 0.4 0.0-1.2 mg/dL Alkaline Phosphatase 51 44-121 IU/L AST (SGOT) 28 0-40 IU/L ALT (SGPT) 30 0-44 IU/L LP+Non-HDL Cholesterol-94715 5 Reviewed date:12/31/2024 06:20:20 PM Interpretation: Performing Lab:[facility] [address], Phone - [phone], Director - [facility] Notes/Report: Test(s) 876774-Euvpkzritvbt, Total, LC/MS; [id number] was developed and its performance characteristics determined by [facility]. It has not been cleared or approved by the Food and Drug Administration. Cholesterol, Total 45 100-199 mg/dL Triglycerides 59 0-149 mg/dL HDL Cholesterol 28 >39 mg/dL VLDL Cholesterol Eddi 15 5-40 mg/dL LDL Chol Calc (NIH) 2 0-99 mg/dL Non-HDL Cholesterol 17 0-129 mg/dL HCV Antibody-[id number] Reviewed date:12/31/2024 06:20:20 PM Interpretation: Performing Lab:[facility], Phone - [phone], [facility] Notes/Report: Test(s) 391414-Dxjwzdjgtiah, Total, LC/MS; [id number] was developed and its performance characteristics determined by [facility]. It has not been cleared or approved by the Food and Drug Administration. Hep C Virus Ab Non Reactive Non Reactive HCV antibody alone does not differentiate between previously resolved infection and active infection. Equivocal and Reactive HCV antibody results should be followed up with an HCV RNA test to support the diagnosis of active HCV infection. Phosphorylated Tau 217 (pTau -217) Reviewed date:12/31/2024 06:20:20 PM Interpretation: Performing Lab:[facility], [place], Phone - [phone], Director - [facility] Notes/Report: Test(s) 136643-Travuejbbemn, Total, LC/MS; [id number]-[id number] was developed and its performance characteristics determined by [facility]. It has not been cleared or approved by the Food and Drug Administration. p-iiv391 0.36 0.00-0.18 pg/mL Clinical cutoff value was established using samples from a patient cohort characterized with amyloid PET data. A p-fil963 value of >0.18 is a reported surrogate marker for beta amyloid pathology, and can be used to facilitate biological identification of Alzheimer's disease (1). p-kid837 has also been used in clinical trials to monitor patients on anti-amyloid therapy (2,3). Test performed by [employer] chemiluminescent enzyme immunoassay (CLEIA). Values obtained with different methods cannot be used interchangeably. The validated limit of quantification is 0.06 pg/mL. Assay detection limit is 0.03 pg/mL. Footnotes 1. Max Carey, et al. Diagnostic Accuracy of a Plasma Phosphorylated Tau 217 Immunoassay for Alzheimer Disease Pathology. [place] [facility] (2023). 2. Max Carey, et al. Differential roles of A42/40, p-uhj062 and p-urz362 for Alzheimer's trial selection and disease monitoring. Nature medicine 28.12 (2021): 2219-6155. 3. Mallorie MJ, Kaelyn M, [place], et al. Association of [place] Treatment With Exploratory Plasma Biomarkers in Early Symptomatic Alzheimer Disease: A Secondary Analysis of the TRAILBLAZER-ALZ Randomized Clinical Trial . [place] Neurol. 2021;79(12):7863-3601. Urinalysis, Complete-021858 (Not yet reviewed by provider) Interpretation: Performing Lab[facility], [address] [place] [address], [place], Phone - [phone], Director - Debra Notes/Report: Test(s) 738015-Ysjsvjludpcq, Total, LC/MS was developed and its performance characteristics determined by [facility]. It has not been cleared or approved by the Food and Drug Administration. Test(s) 469481-Fvidqiaqrvjp, Total, LC/MS was developed and its performance characteristics determined by [facility]. It has not been cleared or approved by the Food and Drug Administration. Specific [place] 1.027 1.005-1.030 pH 5.5 5.0-7.5 Urine-Color Yellow Yellow Appearance Clear Clear WBC Esterase 1+ Negative Protein Negative Negative/Trace Glucose 3+ Negative Ketones Negative Negative Occult Blood Trace Negative Bilirubin Negative Negative Urobilinogen,Semi-Qn 0.2 0.2-1.0 mg/dL Nitrite, Urine Positive Negative Microscopic Examination See below: Micr oscopic was indicated and was performed. WBC 11-30 0 - 5 /hpf RBC None seen 0 - 2 /hpf Epithelial Cells (non renal) None seen 0 - 10 /hpf Casts None seen None seen /lpf Bacteria Moderate None seen/Few Comp. Metabolic Panel (14)-3 56541 (Not yet reviewed by provider) Interpretation: Performing Lab:[facility], [address] [facility], Phone - [phone], Director - [facility] Notes/Report: Test(s) 984779-Jrgxgassjnkl, Total, LC/MS was developed and its performance characteristics determined by [facility]. It has not been cleared or approved by the Food and Drug Administration. Glucose 149 70-99 mg/dL BUN 12 8-27 mg/dL Creatinine 1.25 0.76-1.27 mg/dL eGFR 56 >59 mL/min/1.73 BUN/Creatinine Ratio 10 10-24 Sodium 142 134-144 mmol/L Potassium 4.3 3.5-5.2 mmol/L Chloride 105 96-106 mmol/L Carbon Dioxide, Total 20 20-29 mmol/L Calcium 9.4 8.6-10.2 mg/dL Protein, Total 6.3 6.0-8.5 g/dL Albumin 4.3 3.7-4.7 g/dL Globulin, Total 2.0 1.5-4.5 g/dL Bilirubin, Total 0.4 0.0-1.2 mg/dL Alkaline Phosphatase 40 48-129 IU/L AST (SGOT) 17 0-40 IU/L ALT (SGPT) 16 0-44 IU/L LP+Non-HDL Cholesterol-61463 5 (Not yet reviewed by provider) Interpretation: Performing Lab:[facility], [address] [facility], [place], Phone - [phone], Director - [facility] Notes/Report: Test(s) 644177-Nwjvusgpfccn, Total, LC/MS was developed and its performance characteristics determined by [facility]. It has not been cleared or approved by the Food and Drug Administration. Cholesterol, Total 53 100-199 mg/dL Triglycerides 105 0-149 mg/dL HDL Cholesterol 25 >39 mg/dL VLDL Cholesterol Eddi 20 5-40 mg/dL LDL Chol Calc (NIH) 8 0-99 mg/dL Non-HDL Cholesterol 28 0-129 mg/dL Hemoglobin A1C Reviewed date:08/13/2025 02:02:04 PM Interpretation:7.6 Performing Lab: Notes/Report: 7.[address], Brain Amyloid Reviewed date:04/27/2025 03:13:31 PM Interpretation: Performing Lab: Notes/Report: Eye Exam (Not yet reviewed b y provider) Interpretation: Performing Lab: Notes/Report: Hemoglobin A1C Reviewed date:11/04/2024 06:52:01 PM Interpretation: Performing Lab: Notes/Report: DCA Eagle 2 (DCA Eagle 2), Alexander Hoover MD Lot: [id number] Uric Acid-294542 Reviewed date:12/31/2024 06:20:19 PM Interpretation: Performing Lab:[facility], Phone - [phone], Director - [facility] Notes/Report: Test(s) 225448-Bgjvlrofgzvi, Total, LC/MS; 675282-i-qvg855 was developed and its performance characteristics determined by [facility]. It has not been cleared or approved by the Food and Drug Administration. Uric Acid 6.7 3.8-8.4 mg/dL Therapeutic ta rget for gout patients: <6.0 Creatine Kinase (CK), MB/Tot al-828357 Reviewed date:12/31/2024 06:20:19 PM Interpretation: Performing Lab:[facility] [place], Phone - [phone], Director - [facility] Notes/Report: Test(s) 987753-Awiwrhccfbgg, Total, LC/MS; [id number] was developed and its performance characteristics determined by [facility]. It has not been cleared or approved by the Food and Drug Administration. Creatine Kinase,Total 143 30-208 U/L Creatine Kinase (CK), MB 4.4 0.0-10.4 ng/mL Testosterone, F Eqlib+T LC/M S-297795 Reviewed date:12/31/2024 06:20:19 PM Interpretation: Performing Lab:[facility] [place], [address] [place] [address], Phone - [phone], Director - [facility] Notes/Report: Test(s) 351202-Zhpuqlapzrbc, Total, LC/MS; [id number]-bpy746 was developed and its performance characteristics determined by [facility]. It has not been cleared or approved by the Food and Drug Administration. Testosterone, Total, LC/MS 350.0 264.0-916.0 ng /dL This [facility] LC/MS-MS method is currently certified by the CDC Hormone Standardization Program (HoSt). Adult male reference interval is based on a population of healthy nonobese males (BMI <30) between 19 and 39 years old. Zahra, et.al. JCEM 2017,102;0914-0552. PMID: 29413382. Testosterone, Free 12.67 5.00-21.00 ng/dL % Free Testosterone 3.62 1.50-4.20 % Troponin T-140147 Reviewed date:12/31/2024 06:20:20 PM Interpretation: Performing Lab:[facility] [place], [address] [place] [address], Phone - [phone], Director - [facility] Notes/Report: Test(s) 902722-Fgjckdgetags, Total, LC/MS; 539401-[id number] was developed and its performance characteristics determined by [facility]. It has not been cleared or approved by the Food and Drug Administration. Troponin T(Highly Sensitive) 21 0-22 ng/L In order to distinguish acute elevations of high sensitive Troponin from other clinical conditions, the [place] Definition of myocardial infarction stresses clinical assessment and the need for serial measurements to observe a rise and/or fall above the upper limit of the reference interval. Albumin/Creatinine Ratio,Uri ne-232801 Reviewed date:12/31/2024 06:20:20 PM Interpretation: Performing Lab:[facility] [place] [address] [place] [address], [place], Phone - [phone], Director - [facility] Notes/Report: Test(s) 339568-Feoekppddgrd, Total, LC/MS; 995069-b-qsk294 was developed and its performance characteristics determined by [facility]. It has not been cleared or approved by the Food and Drug Administration. Creatinine, Urine 59.9 Not Estab. mg/dL Albumin, Urine 3.4 Not Estab. ug/mL Alb/Creat Ratio 6 0-29 mg/g creat Normal: 0 - 29 Moderately increased: 30 - 300 Severely increased: >300 Exercise Stress Nuclear Test Reviewed date:02/19/2025 05:12:00 PM Interpretation: Performing Lab: Notes/Report: Vitamin [id number] Reviewed date:03/18/2025 07:27:25 PM Interpretation: Performing Lab:[facility], [address], [place], Phone - [phone], Director - [facility] Notes/Report: Vitamin B12 7501 656-2464 pg/mL TSH-570635 Reviewed date:03/18/2025 07:27:25 PM Interpretation: Performing Lab:[facility], [email or web address], [place], Phone - [phone], Director - [facility] Notes/Report: TSH 3.420 0.450-4.500 uIU/mL APOE Alzheimer's Risk-928040 Reviewed date:03/18/2025 07:27:25 PM Interpretation: Performing Lab:[facility], [email or web address], [place], Phone - [phone], Director - [facility] Notes/Report: Methodology: Patient DNA is assayed for the APOE genotype by PCR amplification of a specific region in exon 4 of the APOE gene followed by digestion with restriction enzyme [employer] I and separation of fragments by polyacrylamide gel electrophoresis. This approach allows the APOE E2, E3, and E4 alleles to be distinguished. Analytical sensitivity and specificity are >99.5%. Individuals are interpreted as having one of the following genotypes: E2/E2, E3/E3, E4/E4, E2/E3, E2/E4, E3/E4. APO E Genotyping Result: E3/E3 Interpretation: Negative for the APOE4 variant that is associated with increased risk for late onset Alzheimer's disease (AD). E3/E3 is the most common APOE genotype and is not associated with increased risk for AD. RECOMMENDATIONS Genetic counseling is recommended. Due to the lack of measures to prevent the development of AD, the ACMG/NSGC guidelines do not recommend presymptomatic testing, but if it is performed, guidelines are provided (Camilo KLEIN et al. 2011). The APOE Genotyping: Alzheimer's Risk test is not recommended for children. NOTE: This is not a diagnostic test. Results should be interpreted along with clinical findings and other data. This test evaluates only for the APOE genotype and cannot detect genetic abnormalities elsewhere in the genome. It should be realized that there are possible sources of error including sample misidentification, rare technical errors, trace contamination of PCR reactions, and rare genetic variants that may interfere with analysis. For inquiries or genetic consultation, please call [facility] at . Comment: INFORMATION ABOUT THE APOE GENOTYPE AND ALZHEIMER'S DISEASE Alzheimer's disease (AD) is the most common form of dementia in the elderly and currently affects more than 5 million Americans. It is a progressive neurodegenerative disorder with brain findings of plaques and neurofibrillary tangles containing beta-amyloid and tau protein respectively. The predominant form of AD is late onset (age > 60-65), which can be familial (15-20%) or sporadic. The APOE4 variant increases the risk for late onset AD and may contribute to the pathology of the disease. This risk is increased by approximately 2 to 3-fold for individuals with one copy of the APOE4 variant and by approximately 10 [id number] for individuals with two copies of this variant (E4/E4 genotype). The APOE2 variant has some protective effect against development of late onset AD. The lifetime risk for late onset AD is approximately 10-12% in the general population, though it is higher in women than men and doubles when there is a first degree relative with this disorder. The lifetime risk is approximately 9% for individuals negative for APOE4, and for individuals with E4/E4 may be as high as 25% for males and 45% for females. Among patients with late onset AD, the presence of APOE4 may lead to earlier development of symptoms. However, APOE4 is neither necessary nor sufficient for the development of AD. Approximately 30-50% of patients with late onset AD do not have an APOE4 allele. APOE4 is common, with 25% of the general population having one copy and 1% having two copies of this variant. Among patients with late onset AD, 50-70% are positive for APOE4. The development of late onset AD is influenced by many factors other than APOE4 including age, gender, family history, level of education and history of head trauma. Midlife cardiovascular risk factors in individuals with APOE4 also increase risk for cognitive decline. A number of genetic influences in addition to APOE4 have also been reported and are under investigation. This test was developed and its performance characteristics determined by [facility]. It has not been cleared or approved by the Food and Drug Administration. The FDA has determined that such clearance or approval is not necessary. REFERENCES Gail Mcgee et al. Sex modifies the APOE-related risk of developing Alzheimer disease. Annal Neurol 2014;75(4):563-573 Mateus RAMOS. Alzheimer Disease Overview. Apptimate (internet). Almaz HELTON et al., editors. [facility]: [facility], [place], [place]. Last revised 2014. Camilo JS et al. Genetic counseling and testing for Alzheimer disease: Joint practice guidelines of the [place] College [employer] Medical Genetics and the National Society of Genetic Counselors. [place] in Med 2011;13(8)597-603. Kike PICKETT. Apolipoprotein E: Implications for AD neurobiology, epidemiology and risk assessment. Neurobiology of Aging 2011;32:778-790 [facility] Informed Consent Fo Reviewed date:02/24/2025 12:55:57 PM Interpretation: Performing Lab:Alivia Barnes, [address], [place], Phone - [phone], Director - [facility] Notes/Report: [facility] Informed Consent Form [facility] Informed Consent Form 02 Please Fax back to [phone]. Many states require laboratories to have documentation that the appropriate health care provider has obtained informed consent from patients before the laboratory conducts genetic testing. Informed consent includes the patient understanding the purpose of the test, how the test is performed, the reliability of the test, alternatives to testing, implications of test results, and options on how to instruct the laboratory to store, use or dispose of the sample when testing is complete. [facility] did not receive any documentation of informed consent for above mentioned patient and ordered tests. Please check the statement applicable to this patient and sign below so that [facility] may release the results for this patient. . [] I authorize and confirm patient consent for the above mentioned genetic test(s). . [] I have provided appropriate informed consent for the above mentioned test(s) and documentation of this consent is maintained in the patient record. . . Health care provider signature Date . Printed name . Fax back to [facility] at [phone] . [facility] MR Brain Reviewed date:02/19/2025 05:11:59 PM Interpretation: Performing Lab: Notes/Report: Original Report EXAM: MRI BRAIN WITHOUT CONTRAST CLINICAL INFORMATION: Alzheimer's disease TECHNICAL INFORMATION: Multiplanar sequence acquisition through the brain on an 3T unit before and after intravenous administration of intravenous gadolinium following institutional protocol. SEDATION: None. COMPARISON: None. INTERPRETATION: Posterior fossa shows no intra- or extra-axial fluid collections or shifts. No region of abnormal long TR prolongation change is seen in the cerebellum or brainstem. Cerebellar tonsils are normally positioned above the foramen magnum. Vertebrobasilar arteries maintain patent flow voids, right system dominant. Supratentorial ventricles, sulci and cisterns demonstrate mild, greater central versus cortical volume loss. There are no intra or extra-axial collections, localized mass effects or interhemispheric shifts. Mild bilateral periventricular matter capping with a few small foci of supraventricular and subcortical frontoparietal white matter change present, nonspecific but most consistent with chronic microvascular ischemia. Small focus of cortical or subcortical susceptibility notable within paramedian left superior parietal lobule, and an area of superficial siderosis noted along left superior temporal sulcus. No evidence of large or acute intracranial hemorrhage. The major intracranial vessels maintain patent signal voids. No intracranial masses by unenhanced exam. Paranasal sinuses and mastoid air cells are clear. Within the limits of technique remainder of extracranial structures unremarkable. CONCLUSION: 1. Mild greater central to peripheral cerebral volume loss without particular disproportionate temporoparietal involution. 2. Mild frontoparietal white matter changes most consistent with chronic microvascular ischemia (Fazekas grade I). 3. Punctate microhemorrhage of left parietal lobe, and small region of sulcal hemosiderin staining affecting left temporal lobe consistent with residua of chronic subarachnoid bleed. No large or acute intracranial hemorrhage. Read by: Mustapha So M.D. Reviewed and Electronically Signed by: Mustapha So M.D. Uric Acid-264730 (Not yet re viewed by provider) Interpretation: Performing Lab:[facility] [place], [address] [place] [address], [place], Phone - [phone], Director - [facility] Notes/Report: Test(s) 339300-Wqosmwrtlnjo, Total, LC/MS was developed and its performance characteristics determined by [facility]. It has not been cleared or approved by the Food and Drug Administration. Uric Acid 6.1 3.8-8.4 mg/dL Therapeutic ta rget for gout patients: <6.0 Testosterone, F Eqlib+T LC/M S-[id number] (Not yet reviewed by provider) Interpretation: Performing Lab:[facility] [place], [address] [place] [address], [place], Phone - [phone], Director - [facility] Notes/Report: Test(s) 382227-[id number], Total, LC/MS was developed and its performance characteristics determined by [facility]. It has not been cleared or approved by the Food and Drug Administration. Testosterone, Total, LC/MS 283.3 264.0-916.0 ng /dL This [facility] LC/MS-MS method is currently certified by the CDC Hormone Standardization Program (HoSt). Adult male reference interval is based on a population of healthy nonobese males (BMI <30) between 19 and 39 years old. Zahra, et.al. JCEM 2017,102;8035-3600. PMID: 48995406. Testosterone, Free 5.47 5.00-21.00 ng/dL % Free Testosterone 1.93 1.50-4.20 % Vitamin D, [id number] (Not yet reviewed by provider) Interpretation: Performing Lab:[facility] [place], [address] [place] [address], [place], Phone - [phone], Director - Debra Notes/Report: Test(s) 737162-[id number], Total, LC/MS was developed and its performance characteristics determined by [facility]. It has not been cleared or approved by the Food and Drug Administration. Vitamin D, 25-Hydroxy 54.8 30.0-100.0 ng/mL Vitamin D deficiency has been defined by the [place] of Medicine and an Endocrine Society practice guideline as a level of serum 25-OH vitamin D less than 20 ng/mL (1,2). The Endocrine Society went on to further define vitamin D insufficiency as a level between 21 and 29 ng/mL (2). 1. IOM ([place] of Medicine). 2010. Dietary reference intakes for calcium and D. [place]: The National Academies Press. 2. Clarence MF, Sera TERRY, Haley BASSETT, et al. Evaluation, treatment, and prevention of vitamin D deficiency: an Endocrine Society clinical practice guideline. JCEM. 2010; 96(7):1911-30. Albumin/Creatinine Ratio,Uri [id number] (Not yet reviewed by provider) Interpretation: Performing Lab:[facility], [address] [place] [address], [place], Phone - [phone], Director - Debra Notes/Report: Test(s) [id number], Total, LC/MS was developed and its performance characteristics determined by [facility]. It has not been cleared or approved by the Food and Drug Administration. Creatinine, Urine 55.7 Not Estab. mg/dL Albumin, Urine 23.9 Not Estab. 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 07/07/2024 Active Vitamin D 125 MCG (5000 UT) 1 capsule Orally Once a day Active Pantoprazole Sodium 20 mg TAKE 1 TABLET DAILY Active Repatha 140 MG/ML 1 mL Subcutaneous Every 2 Weeks; Duration: 90 days Active Rosuvastatin Calcium 20 mg TAKE 1 TABLET DAILY Active Ferrous Sulfate 325 (65 Fe) MG 1 tablet Orally Once a day; Duration: 30 day(s) Active Metoprolol Succinate ER 25 MG 0.5 Tablet Orally Once a day 08/28/2016 Active Accu-Chek Guide - TEST 3 TIMES A DAY A S DIRECTED; Duration: 99 Dx: E11.22 Active Accu-Chek Softclix Lancets - TEST TWO TIMES A DAY DIRECTED; Duration: 90 Dx:E11.22 Active Xarelto 2.5 mg TAKE 1 TABLET TWICE A DAY Active Ozempic (1 MG/DOSE) 4 MG/3ML ADMINISTER 1 MG UNDER THE SKIN ONCE A WEEK Active Isosorbide Mononitrate ER 30 mg TAKE 1 TABLET DAILY IN THE MORNING Active Lantus SoloStar 100 UNIT/ML 30 units Subcutaneous daily; Duration: 90 days Active Vitamin B12 1000 MCG 1 tablet Orally Onc e a day; Duration: 30 day(s) Active Testosterone 40.5 MG/2.5GM (1.62%) 2 packets to skin in the morning to shoulder, upper arms or abdomen Transdermal Once a day; Duration: 90 days 11/04/2024 Active Magnesium 400 MG 1 capsule with a jg l Orally Once a day Active Invokamet XR 150-1000 mg TAKE 2 TABLETS ONCE DAILY WITH THE MORNING MEAL Active Dexcom G7 Sensor - apply a new sensor every 10 days; Duration: 30 days Active Colcrys 0.6 MG 1 tablet Orally bid; Duration: 60 days Not-Taking Nitroglycerin 0.4 MG as directed Sublingual Once a day Active Aspirin 81 MG 1 tablet Orally Once a day Not-Taking Accu-Chek Stacie - as directed In Vitro 11/09/2020 Active Immunizations Vaccine Route Administration Date Status Comme nts *Influenza, High Dose Seasonal, Quadrivatent Unknown 07/04/2021 Administered *Influenza, High Dose Seasonal, Quadrivatent Unknown 07/18/2023 Administered *Dtzxshscm-Bkitjby-Yuwz Dose-65+ IM Intramuscular 08/13/2024 Administered *Eyhafdsim-Jckspyf-Wfrm Dose-65+ IM Intramuscular 07/28/2025 Administered *Influenza-Medicare-AS IM Intramuscular 07/23/2019 Adminis tered *Influenza-Medicare-AS IM Intramuscular 07/14/2020 Adminis tered *PREVNAR 20 IM Intramuscular 12/17/2023 Administered *Td (adult) preservative free Unknown 07/10/2003 Administered *Td (adult) preservative free IM Intramuscular 07/23/2019 Administered *Tdap Unknown 05/10/2016 Administered COVID 19 (Pfizer 12+) Unknown 01/20/2022 Administered COVID COMIRNATY Pfizer Unknown 09/11/2023 Administered COVID-19 Pfizer BiValent Booster Unknown 07/25/2022 Administered VUDJO-81-Xnneqh Vaccine Unknown 11/18/2020 Administered VUJZU-53-Qdnjkc Vaccine Unknown 12/11/2020 Administered TJUYY-28-Axfnxg Vaccine Unknown 07/18/2021 Administered Influenza IM Intramuscular 07/20/2016 Administered Influenza (Fluad) Unknown 07/25/2022 Administered Influenza-Afluria (IIV4) IM Intramuscular 08/28/2017 Admin istered Mzujkmyfu-Nsfyrmtsp-Syui IM Intramuscular 07/17/2018 Admin istered Novavax COVID-19 Unknown 08/05/2024 Administered Pneumococcal polysaccharide PCV 13 IM Intramuscular 11/20/2016 Administered Pneumococcal polysaccharide PPV23 Unknown 05/09/2002 Administered Pneumococcal polysaccharide PPV23 Unknown 03/25/2010 Administered RSV Unknown 09/11/2023 Administered Social History Tobacco Use: Social History Observation Description Date Details (start date - stop date) Former Smoker NA - NA AUDIT-C (Standard) Question Answer Notes Did you have a drink contain ing alcohol in the past year? Yes How often did you have a dri nk containing alcohol in the past year? 2 to 4 times a month (2 points) How many drinks did you have on a typical day when you were drinking in the past year? 1 or 2 drinks (0 point) How often did you have six o r more drinks on one occasion in the past year? Never (0 point) Points 2 Interpretation Negative Tobacco Control (Standard) Question Answer Notes Tobacco use: Former smoker How long has it been since y ou last smoked? Greater than 10 years Additional Findings: Tobacco user Heavy cigarett e smoker (20-39 cigs/day) Section Notes: Exercise habits: Had been ex ercising but has slacked off, trying to get back into it Problems Problem Type SNOMED Code ICD Code Onset Dates Problem Status W/U Status Risk Notes Problem Anemia due to chronic blood loss (disorder) (993156189) Iron deficiency anemia secondary to blood loss (chronic) (D50.0) Active confirmed Problem Diabetic renal disease (067732984) Type 2 diabetes mellitus with diabetic chronic kidney disease (E11.22) Active confirmed Problem Testicular hypofunction (039512151) Testicular hypofunction (E29.1) Active confirmed Problem Vitamin D deficiency (18531153) Vitamin D deficiency, unspecified (E55.9) Active confirmed Problem Mixed hyperlipidemia (943679576) Mixed hyperlipidemia (E78.2) Active confirmed Problem Tobacco user (444618026) Nicotine dependence, cigarettes, 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) Active confirmed Problem Mild major depression, single episode (62801157) Major depressive disorder, single episode, mild (F32.0) Active confirmed Problem Alzheimer's disease with late onset (334821441) Alzheimer's disease with late onset (G30.1) Active confirmed Problem Sleep related hypoventilation (855716483) Sleep related hypoventilation in conditions classified elsewhere (G47.36) Active confirmed Problem Carpal tunnel syndrome (30389172) Carpal tunnel syndrome, right upper limb (G56.01) Active confirmed Problem Carpal tunnel syndrome (40153097) Carpal tunnel syndrome, left upper limb (G56.02) Active confirmed Problem Sensorineural hearing loss of bilateral ears (disorder) (101423148) Sensorineural hearing loss, bilateral (H90.3) Active confirmed Problem Chronic kidney disease due to hypertension (041064342199680) Hypertensive chronic kidney disease with stage 1 through stage 4 chronic kidney disease, or unspecified chronic kidney disease (I12.9) Active confirmed Problem Atherosclerotic heart disease of [place] coronary artery without angina pectoris (920616076281126) Atherosclerotic heart disease of [place] coronary artery without angina pectoris (I25.10) Active confirmed Problem Intermittent claudication of bilateral lower limbs co-occurrent and due to atherosclerosis (65449412776372310) Atherosclerosis of [place] arteries of extremities with intermittent claudication, bilateral legs (I70.213) Active confirmed Problem Varicose veins o f left lower extremity with inflammation (I83.12) Active confirmed Problem Gastro-esophageal reflux disease without esophagitis (926212999) Gastro-esophageal reflux disease without esophagitis (K21.9) Active confirmed Problem Irritable bowel syndrome with diarrhea (200888497) Irritable bowel syndrome with diarrhea (K58.0) Active confirmed Problem Chronic gouty arthritis (17920802) Chronic gout, unspecified, without tophus (tophi) (M1A.9XX0) Active confirmed Problem Non-traumatic partial tear of left rotator cuff (1393908202812085) Incomplete rotator cuff tear or rupture of left shoulder, not specified as traumatic (M75.112) Active confirmed Problem Full thickness rotator cuff tear (444225929) Complete rotator cuff tear or rupture of left shoulder, not specified as traumatic (M75.122) Active confirmed Problem Sensory disorder of smell and/or taste (0630186247532) Other disturbances of smell and taste (R43.8) Active confirmed Problem Long-term current use of insulin (378907974) [facility]FP (current) use of insulin (Z79.4) Active confirmed Problem Cardiac implant (344822136) Presence of other cardiac implants and grafts (Z95.818) Active confirmed Problem Finding of hearing aid (614841446) Presence of external hearing-aid (Z97.4) Active confirmed Problem Lower urinary tract symptoms due to benign prostatic hypertrophy (80396043975868) Benign prostatic hyperplasia with lower urinary tract symptoms (N40.1) Active confirmed Problem Elevated PSA (941924883) Elevated prostate specific antigen [PSA] (R97.20) Active confirmed Problem Chronic kidney disease stage 3A (disorder) (881605449) Chronic kidney disease, stage 3a (N18.31) Active confirmed Problem Vascular dementia, mild, with mood disturbance (F01.A3) Active confirmed Problem Mild cognitive disorder (898133576) Mild cognitive impairment of uncertain or unknown etiology (G31.84) Active confirmed Problem Angina co-occurrent and due to coronary arteriosclerosis (disorder) (78758506430703434) Atherosclerotic heart disease of [place] coronary artery with other forms of angina pectoris (I25.118) Inactive confirmed Problem Peripheral vascular disease (913410846) Peripheral vascular disease, unspecified (I73.9) Inactive confirmed Problem Plantar wart (73123690) Plantar wart (B07.0) Problem resolved confirmed Problem Right carotid artery stenosis (544292709266597) Occlusion and stenosis of right carotid artery (I65.21) Problem resolved confirmed Problem Occlusion and stenosis of multiple and bilateral cerebral arteries (654153562) Occlusion and stenosis of bilateral carotid arteries (I65.23) Problem resolved confirmed Problem Spontaneous rupture of flexor tendons, right thigh (M66.351) Problem resolved confirmed Vital Signs Heart Rate 68 /min 08/13/2025 Temperature 96.7 degrees Fahrenheit 08/13/2025 Oximetry 98 % 08/13/2025 Blood pressure diastolic 52 mm Hg 08/13/2025 Height 70 in 08/13/2025 Blood pressure systolic 114 mm Hg 08/13/2025 Weight 157 lbs 08/13/2025 BMI 22.52 kg/m2 08/13/2025 Encounters Encounter Location Date Provider Diagnosis Alexander Hoover MD [address] [id number] 11/04/2024 Alexander Hoover Type 2 diabetes mellitus with diabetic chronic kidney disease E11.22 ; [facility] (current) use of insulin Z79.4 ; Chronic kidney disease, stage 3a N18.31 ; Major depressive disorder, single episode, mild F32.0 ; Hypertensive chronic kidney disease with stage 1 through stage 4 chronic kidney disease, or unspecified chronic kidney disease I12.9 ; Vascular dementia, mild, with mood disturbance F01.A3 ; Atherosclerosis of [place] arteries of extremities with intermittent claudication, bilateral legs I70.213 ; Atherosclerotic heart disease of [place] coronary artery with other forms of angina pectoris I25.118 ; Mixed hyperlipidemia E78.2 ; Testicular hypofunction E29.1 ; Chronic gout, unspecified, without tophus (tophi) M1A.9XX0 ; Sleep related hypoventilation in conditions classified elsewhere G47.36 ; Gastro-esophageal reflux disease without esophagitis K21.9 ; Iron deficiency anemia secondary to blood loss (chronic) D50.0 ; Nicotine dependence, cigarettes, in remission F17.211 and Vitamin D deficiency, unspecified E55.9 Alexander Hoover MD [address] [id number] 12/18/2024 Alexander Hoover Hypertensive chronic kidney disease with stage 1 through stage 4 chronic kidney disease, or unspecified chronic kidney disease I12.9 ; Encounter for general adult medical examination without abnormal findings Z00.00 ; Type 2 diabetes mellitus with diabetic chronic kidney disease E11.22 ; 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 ; Chronic kidney disease, stage 3a N18.31 ; Major depressive disorder, single episode, mild F32.0 ; Vascular dementia, mild, with mood disturbance F01.A3 ; Atherosclerosis of [place] arteries of extremities with intermittent claudication, bilateral legs I70.213 ; Atherosclerotic heart disease of [place] coronary artery with other forms of angina pectoris I25.118 ; Sleep related hypoventilation in conditions classified elsewhere G47.36 ; Iron deficiency anemia secondary to blood loss (chronic) D50.0 ; Gastro-esophageal reflux disease without esophagitis K21.9 ; Mixed hyperlipidemia E78.2 ; Testicular hypofunction E29.1 ; Chronic gout, unspecified, without tophus (tophi) M1A.9XX0 ; Nicotine dependence, cigarettes, in remission F17.211 ; Vitamin D deficiency, unspecified E55.9 ; Encounter for screening for malignant neoplasm of colon Z12.11 ; Encounter for screening for malignant neoplasm of prostate Z12.5 ; Encounter for screening for cardiovascular disorders Z13.6 ; Encounter for immunization Z23 ; Encounter for antibody response examination Z01.84 ; Encounter for screening for other viral diseases Z11.59 ; Sensorineural hearing loss, bilateral H90.3 and Presence of external hearing-aid Z97.4 Alexander Hoover MD [address] [id number] 02/03/2025 Alexander Hoover Alzheimer's disease with late onset G30.1 Alexander Hoover MD [address] [id number] 03/19/2025 Alexander Hoover Fever, unspecified R50.9 Alexander Hoover MD [address] [id number] 05/11/2025 Alexander Hoover Hypertensive chronic kidney disease with stage 1 through stage 4 chronic kidney disease, or unspecified chronic kidney disease I12.9 ; Type 2 diabetes mellitus with diabetic chronic kidney disease E11.22 ; 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 ; Chronic kidney disease, stage 3a N18.31 ; Major depressive disorder, single episode, mild F32.0 ; Vascular dementia, mild, with mood disturbance F01.A3 ; Atherosclerosis of [place] arteries of extremities with intermittent claudication, bilateral legs I70.213 ; Atherosclerotic heart disease of [place] coronary artery with other forms of angina pectoris I25.118 ; Sleep related hypoventilation in conditions classified elsewhere G47.36 ; Iron deficiency anemia secondary to blood loss (chronic) D50.0 ; Gastro-esophageal reflux disease without esophagitis K21.9 ; Mixed hyperlipidemia E78.2 ; Testicular hypofunction E29.1 ; Chronic gout, unspecified, without tophus (tophi) M1A.9XX0 ; Nicotine dependence, cigarettes, in remission F17.211 and Vitamin D deficiency, unspecified E55.9 Alexander Hoover MD [address] [id number] 07/28/2025 Alexander Hoover Alzheimer's disease with late onset G30.1 and Encounter for immunization Z23 Alexander Hoover MD [address] [id number] 08/13/2025 Alexander Hoover Type 2 diabetes mellitus with diabetic chronic kidney disease E11.22 ; Hypertensive chronic kidney disease with stage 1 through stage 4 chronic kidney disease, or unspecified chronic kidney disease I12.9 ; [facility] (current) use of insulin Z79.4 ; Chronic kidney disease, stage 3a N18.31 ; Alzheimer's disease with late onset G30.1 ; Vascular dementia, mild, with mood disturbance F01.A3 ; Major depressive disorder, single episode, mild F32.0 ; Atherosclerosis of [place] arteries of extremities with intermittent claudication, bilateral legs I70.213 ; Atherosclerotic heart disease of [place] coronary artery with other forms of angina pectoris I25.118 ; Sleep related hypoventilation in conditions classified elsewhere G47.36 ; Iron deficiency anemia secondary to blood loss (chronic) D50.0 ; Gastro-esophageal reflux disease without esophagitis K21.9 ; Mixed hyperlipidemia E78.2 ; Testicular hypofunction E29.1 ; Chronic gout, unspecified, without tophus (tophi) M1A.9XX0 ; Nicotine dependence, cigarettes, in remission F17.211 and Vitamin D deficiency, unspecified E55.9 Alexander Hoover MD [address] [id number] 11/04/2024 Alexander Hoover MD [address] [id number] 12/21/2024 Alexander Hoover MD [address] [id number] 12/31/2024 Alexander Hoover MD [address] [id number] 01/27/2025 Alexander Hoover MD [address] [id number] 02/19/2025 Alexander Hoover Alzheimer's disease with late onset G30.1 Alexander Hoover MD [address] [id number] 03/12/2025 Alexander Hoover MD [address] [id number] 03/18/2025 Alexander Hoover MD [address] [id number] 03/18/2025 Alexander Hoover MD [address] [id number] 04/23/2025 Alexander Hoover MD [address] [facility] [address] [place] [address] [id number] 05/05/2025 Alexander Hoover MD [address] [facility] [address] [place] [address] [id number] 07/06/2025 Alexander Hoover MD [address] [facility] [address] [place] [address] [id number] 07/16/2025 Alexander Hoover Assessments Encounter Date Diagnosis (ICD Code) Assessment Notes Treatment Notes Treatment Clinical Notes Section Notes 11/04/2024 Type 2 diabetes mellitus with diabetic chronic kidney disease (ICD-10 - E11.22) Stable with current medical therapy. Continue same 11/04/2024 [facility]FP (current) use of insulin (ICD-10 - Z79.4) Stable and unchanged without complications 12/18/2024 Hypertensive chronic kidney disease with stage 1 through stage 4 chronic kidney disease, or unspecified chronic kidney disease (ICD-10 - I12.9) Stable at present. Continue current medical therapy 02/03/2025 Alzheimer's disease with late onset (ICD-10 - G30.1) His serum Bobby protein is elevated. This is highly suggestive of Alzheimer's disease. He has a well-preserved Michael cognitive assessment score. He probably has early manifestations of Alzheimer's. At this point he would benefit from further evaluation to verify Alzheimer's with MRI and amyloid PET scan. If this is verified he would benefit from disease modifying therapy given his Irwin cognitive assessment test results. 02/19/2025 Alzheimer's disease with late onset (ICD-10 - G30.1) 03/19/2025 Fever, unspecified (ICD-10 - R50.9) See prior message for additional history. He had a fever and malaise and weakness. This happened about 3 to 4 days ago. Since then his fever has improved and he is starting to feel better. His exam is relatively benign. He may have had a viral illness. Influenza is possible. At this point there does not appear to be any complication and he is improving. Recommend supportive care with hydration and he should continue to improve over the next few days. We can try to do a respiratory panel but identification would not be of any benefit since there would be no specific treatment at this point in time. 05/11/2025 Hypertensive chronic kidney disease with stage 1 through stage 4 chronic kidney disease, or unspecified chronic kidney disease (ICD-10 - I12.9) Stable at present. Continue current medical therapy 05/11/2025 Type 2 diabetes mellitus with diabetic chronic kidney disease (ICD-10 - E11.22) Stable on prior labs as reviewed. Recheck status. Continue current GLP therapy not only for diabetes management but for cardiovascular risk reduction as well 12/18/2024 Encounter for general adult medical examination without abnormal findings (ICD-10 - Z00.00) General healthcare up-to-date. Check routine labs Healthcare proxy already on file 07/28/2025 Alzheimer's disease with late onset (ICD-10 - G30.1) MOCA performed in office and scored 24/30. Back in January 2025 he scored a 28/30. Appears to be slowly declining according to the MOCA. His serum Bobby protein is elevated but amyloid PET scan was negative. Recommend continue to monitor montral cognitive assessment every six months and he would benefit from repeat PET scan one year from last. 08/13/2025 Type 2 diabetes mellitus with diabetic chronic kidney disease (ICD-10 - E11.22) Glycohemoglobin A1C was 6.8 at last check, awaiting today's result. Blood sugar is described as 'always off a little bit'. Diabetes management is ongoing to prevent complications. - Monitor glycohemoglobin A1C. - Continue Lantus at reduced dose (30 units). - Continue Ozempic. - Continue Invokamet. - Restart exercise 08/13/2025 Hypertensive chronic kidney disease with stage 1 through stage 4 chronic kidney disease, or unspecified chronic kidney disease (ICD-10 - I12.9) Stable at present. Continue current medical therapy 08/13/2025 [facility]FP (current) use of insulin (ICD-10 - Z79.4) Continues to use insulin without complications 07/28/2025 Encounter for immunization (ICD-10 - Z23) 05/11/2025 truck terminal manager (current) use of insulin (ICD-10 - Z79.4) Continues to use insulin without complications 12/18/2024 Type 2 diabetes mellitus with diabetic chronic kidney disease (ICD-10 - E11.22) Stable with current medical therapy. Continue current GLP therapy not only for diabetes management but for cardiovascular risk reduction as well 11/04/2024 Chronic kidney disease, stage 3a (ICD-10 - N18.31) Stable estimated GFR in the 50s. Continue control comorbidities of diabetes and hypertension 11/04/2024 Major depressive disorder, single episode, mild (ICD-10 - F32.0) Fair control. He feels that he is has some waxing and waning issues including frustrations with family as well as some depression. Could consider medical therapy but he is not certain if he wants to start medical therapy. Therefore recommend counseling to help with support. 11/04/2024 Hypertensive chronic kidney disease with stage 1 through stage 4 chronic kidney disease, or unspecified chronic kidney disease (ICD-10 - I12.9) Stable at present. Continue current medical therapy 12/18/2024 truck terminal manager (current) use of insulin (ICD-10 - Z79.4) Continues to use insulin without complications 05/11/2025 Chronic kidney disease, stage 3a (ICD-10 - N18.31) Stable estimated GFR in the 50s. Continue control of comorbidities 08/13/2025 Chronic kidney disease, stage 3a (ICD-10 - N18.31) GFR is up to 54 and has been steady in the 50s, consistent with stage 3a CKD. No protein or blood in the urine, indicating no diabetes-related nephropathy. Kidney function is being monitored to prevent further decline. - Continue diabetes management to preserve kidney function. - Continue Ozempic and Invokana component of Invokamet for kidney protection. 05/11/2025 Major depressive disorder, single episode, mild (ICD-10 - F32.0) He is doing okay. He still has some family issues to deal with but relatively stable 08/13/2025 Alzheimer's disease with late onset (ICD-10 - G30.1) Alzheimer's test is a little high. PET scan did not show significant accumulation. MoCA test fluctuates; PET scan score was 13. Slow progression is suspected. - Repeat MoCA test in February. - Repeat PET scan in February to assess progression. - Consider MRI if needed to further evaluate progression. 12/18/2024 Chronic kidney disease, stage 3a (ICD-10 - N18.31) Stable estimated GFR in the 50s. Continue control of comorbidities 11/04/2024 Vascular dementia, mild, with mood disturbance (ICD-10 - F01.A3) Stable at present. He has mild cognitive impairment. Continue to control comorbidities of hypertension and diabetes 11/04/2024 Atherosclerosis of [place] arteries of extremities with intermittent claudication, bilateral legs (ICD-10 - I70.213) Stable at present without any recurrent symptoms. Continue control of medical comorbidities 12/18/2024 Major depressive disorder, single episode, mild (ICD-10 - F32.0) He still has a depressed mood but he feels he is doing okay. He still has frustrations with family issues as well. 05/11/2025 Vascular dementia, mild, with mood disturbance (ICD-10 - F01.A3) Stable at present. His evaluation for Alzheimer's with PET scan does not truly verify Alzheimer's. 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 At this stage he may not benefit from therapy to remove tau protein but may benefit from medical therapy to prevent deposition of tau protein. When this medical therapy becomes available it may be a more appropriate treatment for him. Until then continue treatment for risk modification to minimize progression of vascular dementia 08/13/2025 Vascular dementia, mild, with mood disturbance (ICD-10 - F01.A3) MRI shows vascular components. Poor circulation is a contributing factor. Dementia is described as loss of brain function. - Monitor cognitive status and circulation. 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 He still has some family issues to deal with but relatively stable 05/11/2025 Atherosclerosis of [place] arteries of extremities with intermittent claudication, bilateral legs (ICD-10 - I70.213) Stable at present without any recurrent symptoms. Continue control of medical comorbidities 12/18/2024 Vascular dementia, mild, with mood disturbance (ICD-10 - F01.A3) Stable at present. 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 11/04/2024 Mixed hyperlipidemia (ICD-10 - E78.2) Controlled with LDL less than 50. Continue current medical therapy. He is at the goal of LDL less than 50 12/18/2024 Atherosclerosis of [place] arteries of extremities with intermittent claudication, bilateral legs (ICD-10 - I70.213) Stable at present without any recurrent symptoms. 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 He had 1 episode of chest pain. Otherwise relatively stable. He had a negative stress test about a year ago. 08/13/2025 Atherosclerosis of [place] arteries of extremities with intermittent claudication, bilateral legs (ICD-10 - I70.213) Stable at present without any recurrent symptoms. 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 He had a negative stress test about a year ago. 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 He had an episode of chest pain earlier this morning where he had to take 3 nitroglycerin but the pain did not resolve. It took about 20 minutes additional. He had a negative stress test a year ago and this may be noncardiac. He thought it was heartburn. 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 Continue iron replacement therapy. 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 Continue iron replacement therapy. 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 Continue iron replacement therapy. 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 If he has continued symptoms with negative cardiac evaluation then may need further evaluation with endoscopy or change in medical therapy 08/13/2025 Gastro-esophageal reflux disease without esophagitis (ICD-10 - K21.9) Symptomatically stable at present 08/13/2025 Mixed hyperlipidemia (ICD-10 - E78.2) Cholesterol LDL is 2, which is at goal (under 50). Repatha therapy is effective. - Refill Repatha. 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 He would benefit from therapy but he occasionally and frequently forgets to get his injection. 12/18/2024 Mixed hyperlipidemia (ICD-10 - E78.2) Controlled on current medical therapy with LDL less than 50. Continue same. 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 He would benefit from therapy but he occasionally and frequently forgets to get his injection. 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 Continue iron replacement therapy. 05/11/2025 Chronic gout, unspecified, without tophus (tophi) (ICD-10 - M1A.9XX0) Stable without any active flare. 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 Testosterone gel is being used. - Continue testosterone gel. 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 Continue current medical therapy 05/11/2025 Nicotine dependence, cigarettes, in remission (ICD-10 - F17.211) Remains in remission 11/04/2024 Nicotine dependence, cigarettes, in remission (ICD-10 - F17.211) Remains in remission 12/18/2024 Chronic gout, unspecified, without tophus (tophi) (ICD-10 - M1A.9XX0) Stable without any active flare. Continue current medical therapy 11/04/2024 Vitamin D deficiency, unspecified (ICD-10 - E55.9) Fair control on prior labs as reviewed. Continue vitamin D supplementation for goal level of 30+ if possible 50+ 05/11/2025 Vitamin D deficiency, unspecified (ICD-10 - E55.9) Stable on prior labs as reviewed. Continue vitamin D supplementation for goal level of 30+ 12/18/2024 Nicotine dependence, cigarettes, in remission (ICD-10 - F17.211) Remains in remission 08/13/2025 Nicotine dependence, cigarettes, in remission (ICD-10 - F17.211) Remains in remission 08/13/2025 Vitamin D deficiency, unspecified (ICD-10 - E55.9) Vitamin D level is 50, which is adequate. Vitamin D supplementation is ongoing. - Continue vitamin D supplementation. 12/18/2024 Vitamin D deficiency, unspecified (ICD-10 - E55.9) Stable on prior labs as reviewed. Continue vitamin D supplementation for goal level of 30+ 12/18/2024 Encounter for screening for malignant neoplasm of colon (ICD-10 - Z12.11) Up-to-date on colon cancer screening 12/18/2024 Encounter for screening for malignant neoplasm of prostate (ICD-10 - Z12.5) Can check PSA has prostate cancer screening realizing the limitation of this test as a screening test 12/18/2024 Encounter for screening for cardiovascular disorders (ICD-10 - Z13.6) Blood pressure is stable. Can check for comorbidity of hyperlipidemia and hyperglycemia to further assess risk. 12/18/2024 Encounter for immunization (ICD-10 - Z23) Vaccines up to date 12/18/2024 Encounter for antibody response examination (ICD-10 - Z01.84) He would be considered immune to rubeola by virtue of his age 0312/18/2024 Encounter for screening for other viral diseases (ICD-10 - Z11.59) Can screen for hepatitis C as per general recommendation 12/18/2024 Sensorineural hearing loss, bilateral (ICD-10 - H90.3) Stable at present. He has hearing aids now. 12/18/2024 Presence of external hearing-aid (ICD-10 - Z97.4) 11/04/2024 Other This note was created with voice dictation recognition software and may contain errors of grammar and syntax. Also labs were reviewed with patient. 12/18/2024 Other This note was created with voice dictation recognition software and may contain errors of grammar and syntax. Also labs were reviewed with patient. 02/03/2025 Other This note was created with voice dictation recognition software and may contain errors of grammar and syntax. Also labs were reviewed with patient. 03/19/2025 Other This note was created with voice dictation recognition software and may contain errors of grammar and syntax. Also labs were reviewed with patient. 05/11/2025 Other This note was created with voice dictation recognition software and may contain errors of grammar and syntax. Also labs were reviewed with patient. 07/28/2025 Other Spent at least 30 min evaluating and assessing and administering MOCA test and answering patients questions 08/13/2025 Other This note was created with a combination of voice dictation recognition software in combination with voice recognition software with AI as allowed by patient consent. It may contain errors of grammar and syntax. Also labs were reviewed with patient. Plan Of Treatment Pending Test Test Name Order Date EMG/NCV 06/27/2022 Eye Exam 08/17/2025 Holter Test 01/05/2021 25OH VITAMIN D 06/27/2022 25OH VITAMIN D 02/20/2022 25OH VITAMIN D 10/23/2022 COMPLETE CBC WITH DIFF 10/23/2022 COMPLETE CBC WITH DIFF 02/20/2022 COMPLETE CBC WITH DIFF 06/27/2022 COMPLETE URINALYSIS 02/20/2022 COMPLETE URINALYSIS 04/18/2016 COMPLETE URINALYSIS 10/23/2022 COMPLETE URINALYSIS 06/27/2022 COMPREHENSIVE METABOLIC PANEL 10/23/2022 COMPREHENSIVE METABOLIC PANEL 04/18/2016 COMPREHENSIVE METABOLIC PANEL 02/20/2022 COMPREHENSIVE METABOLIC PANEL 06/27/2022 FERRITIN 02/20/2022 FOLIC ACID 02/20/2022 FREE TESTOSTERONE 06/27/2022 FREE TESTOSTERONE 10/23/2022 HEMOGLOBIN A1C 10/23/2022 IMMUNOFIXATION SERUM 02/20/2022 IRON & TIBC 02/20/2022 LIPID PANEL 04/18/2016 LIPID PANEL W REFLEX TO DLDL 02/20/2022 LIPID PANEL W REFLEX TO DLDL 06/27/2022 LIPID PANEL W REFLEX TO DLDL 10/23/2022 MAGNESIUM 08/14/2022 RETICULOCYTE COUNT 02/20/2022 TESTOSTERONE 06/27/2022 TESTOSTERONE 10/23/2022 URIC ACID 10/23/2022 URIC ACID 04/18/2016 URINARY MICROALBUMIN 04/18/2016 URINARY MICROALBUMIN 06/27/2022 URINARY MICROALBUMIN 02/20/2022 URINARY MICROALBUMIN 10/23/2022 VITAMIN B12 02/20/2022 ZINC 08/14/2022 ARTERIAL BLOOD GAS 11/28/2017 LYME DISEASE, PCR TICK 07/23/2019 VITAMIN D, 25-HYDROXY 07/14/2020 REMOTE MONITORING SETUP 11/11/2020 US Carotid Duplex Bilat Complt Hemoglobin A1C 06/17/2024 Uric Acid-[id number] 05/11/2025 Uric Acid-207593 08/13/2025 Iron and TIBC-420237 05/11/2025 Hemoglobin Z1f-643003 05/11/2025 Urinalysis, Complete-874484 08/13/2025 Urinalysis, Complete-737611 05/11/2025 Ferritin-179101 05/11/2025 CBC With Differential/Platelet-627030 Reticulocyte Count-977297 05/11/2025 Prostate-Specific Ag-610025 12/18/2024 Testosterone, F Eqlib+T LC/MS-773026 01/2025 Testosterone, F Eqlib+T LC/MS-006852 03/2025 Vitamin D, 73-Qldegqu-329883 08/13/2025 Vitamin D, 98-Tzcexxm-397921 05/11/2025 Albumin/Creatinine Ratio,Urine-021834 Albumin/Creatinine Ratio,Urine-014748 Comp. Metabolic Panel [id number] 2024 Comp. Metabolic Panel [phone] LP+Non-HDL Cholesterol-119752 05/11/2025 LP+Non-HDL Cholesterol-928709 08/13/2025 25OH VITAMIN D 11/20/2016 COMPLETE URINALYSIS 11/20/2016 COMPREHENSIVE METABOLIC PANEL 11/20/2016 FREE TESTOSTERONE 11/20/2016 LIPID PANEL 11/20/2016 TESTOSTERONE 11/20/2016 URINARY MICROALBUMIN 11/20/2016 Next Appt Details Provider Name:Giokeenan Varun , 12/24/2025 01:00:00 PM, [address] [place] [address], [phone], Provider Name:Alexander Varun , 02/23/2026 02:00:00 PM, [address] [place] [address], [phone], Insurance Providers Payer Name Payer Address Payer Phone Subscriber Number Group Number Insured Name Patient Relationship to Insured Coverage Start Date Coverage End Date MEDICARE [address] [facility] [place] [phone] [id number] Fredy Vinson Self - patient is the insured [facility] [address] [place], [place] [id number] Fredy Vinson Self - patient is the insured Medical (General) History Medical History History ICD Code Sleep apnea Atherosclerotic heart diseas e of [place] coronary artery without angina pectoris Testicular hypofunction Vitamin D deficiency, unspecified Peripheral vascular disease, unspecified Chronic gout, unspecified, without tophu s (tophi) Type 2 diabetes mellitus with diabetic c hronic kidney disease Irritable bowel syndrome with diarrhea Gastro-esophageal reflux disease without esophagitis Sleep related hypoventilation in conditi ons classified elsewhere Hypertensive chronic kidney disease with stage 1 through stage 4 chronic kidney disease, or unspecified chronic kidney disease Chronic kidney disease, stage 3 (moderat e) Elevated prostate specific antigen [PSA] Benign prostatic hyperplasia with lower urinary tract symptoms Occlusion and stenosis of bilateral carlos [place] arteries Atherosclerotic heart diseas e of [place] coronary artery with other forms of angina pectoris Presence of other cardiac implants and g rafts Occlusion and stenosis of bilateral carlos [place] arteries (resolved 09/06/2021) Occlusion and stenosis of right carotid artery (resolved 09/06/2021) Plantar wart (resolved 10/23/2022) Spontaneous rupture of flexor tendons, r ight thigh (resolved 05/08/2023) Surgical History Surgery Date(Month/Year) percutaneous transluminal coronary angio plasty 09/2016 Drug Eluting Stent of Circumflex Artery 09/2016 prostate biopsy 2017 carotid endarterectomy, LT carotid endarterectomy, RT Carotid Stent, RT 05/2021 Hospitalization History Reason Date(Month/Year) Carotid Stent 05/2021
--- OUTSIDE RECORDS SUMMARY | 2025-09-01 17:46 | XMS_ITS | Data Portability ---
Author Organization [place] [facility] [employer], [facility] Log Handler Address [address] [place] [address] Assessment No assessment recorded. Plan of Treatment [...] CoV 2 RNA (COVI D-19) , QL, clinical team lead-P CR, respi rator y speci men sars [...] iagno stics .com/ Covid 19. Not Available [employer]- [place] [facility] [address], [place], [address], 09/30/2020 08:29:23 Result Notes None recorded. Problems [...] Vitals Date Recorded Heart rate Oxygen saturation Body temperature Provider Name and Address Organization Details Last Updated DateTime 09/28/2020 99 /min 97 % 97 [degF] Sunni Day LPN [address] [place], [id number], [place] - [employer] [facility] 09/28/2020 10:58:26 Social History None recorded. Functional Status None recorded. Mental Status None recorded. Family History Nothing Reported. Medical History No medical history recorded. Immunizations Vaccine Type Date Status Note Provider Nam e and Address Organization Details Recorded Time COVID-19, mRNA, LNP-S, PF, 30 mcg/0.3 mL dose, miguel-sucrose 01/20/2022 completed Nikkie Alfaro, SIMA- [address] [place], [address], [facility] 01/20/2022 14:42:02 Past Encounters Encounter ID Performer Location Encounter Start Date Encounter Closed Date Diagnosis/Indication Diagnosis SNOMED-CT Code Diagnosis ICD10 Code Diagnosis IMO Codes Diagnosis Note [id number] Reji Moss MD [facility] [address],[place] [address] 09/28/2020 10:57:52 09/28/2020 14:25:33 Coronavirus infection suspected [id number] Z03.818 r/o COVID-19 Pt tolerated the nasal swab test well- states no concerns [id number] SIMA Kern [facility] [address],[place] [address] 01/20/2022 14:27:35 01/20/2022 14:42:19 Administration of SARS-CoV-2 antigen vaccine [id number] Z23 Patient tolerated the injection well, no [...] Perry Member ID Guarantor Name 01/19/2022 MEDICARE A-[place]: [facility] Fredy Vinson [id number] Fredy Vinson 01/24/2022 1 MEDICARE B-[place]: [employer] Fredy Vinson [id number] Fredy Vinson Notes Date Note Type Note Provider Name a nd Address Organization Details Recorded Time 09/28/2020 text/html ROS as noted in the HPI Pt is here outside the [facility] for a covid nasal swab test. Pt denies exposure and covid/cold/flu symptoms. Kim Felix, [facility] [address] [place] [address], [phone], [facility] [employer] [facility] 09/28/2020 14:13:16 01/20/2022 text/html ROS as noted in the HPI Patient is present at the [facility] in [place] for a [employer] booster vaccine. It has been at least 4 months since the patient s last dose. Pre-vaccination screening reviewed with the patient Nikkie Alfaro, [facility]- [address] [place] [address], [phone], [facility] [employer] [facility] 01/20/2022 14:42:07
--- OUTSIDE RECORDS SUMMARY | 2025-09-01 17:46 | XMS_ITS | Clinical Summary ---
Author Organization [facility] Address [address] [place] [address] Phone Care Team Providers Care Whip Operator Name Role Phone Joyce Bond MD Primary Care Provider [phone] Medications No known medications Active Problems No known active problems Social History Tobacco Use Types Packs/Day Years Used Date Smoking Tobacco: Never Assessed Education Answer Date Recorded Are you interested in more education? Not on elpidio e 04/02/2023 Are you concerned about learning? Not on file 04/02/2023 No 04/02/2023 No 04/02/2023 Digital Access Answer Date Recorded No 04/02/2023 No 04/02/2023 Reliable internet access at home? Not on file 04/02/2023 Device with a working camera? Not on file Sex and Gender Information Value Date Recorded Sex Assigned at Not on file Legal Sex Male 12:48 PM EDT Gender Identity Not on file Sexual Orientation Not on file Plan of Treatment Health Maintenance Due Date Last Done Comments DEPRESSION SCREENING 1952 PNEUMOCOCCAL VACCINES (50+ years) (1 of 1 - PCV) 1989 ZOSTER VACCINES (1 of 2) 1989 RSV VACCINE (1 - 1-dose 75+ series) 2014 INFLUENZA VACCINE (#1) 2025 , 07/04/2021, 07/10/2003, Additional history exists COVID-19 VACCINE ( season) 2025 07/25/2022, 01/20/2022, 07/18/2021, Additional history exists Adult Td,Tdap Booster 05/10/2026 05/10/2016, 996 MENINGOCOCCAL VACCINES (ACWY) Aged Out 01/23/1998 No longer eligible based on patient's age to complete this topic HEPATITIS A VACCINES Aged Out 08/14/1998, 01/23/19 98 No longer eligible based on patient's age to complete this topic HIB VACCINES Aged Out No longer eligi ble based on patient's age to complete this topic MENINGOCOCCAL VACCINES (B) Aged Out N o longer eligible based on patient's age to complete this topic Medical Devices Not on file [place] [id number] MEDICARE PART A & B [facility] MEDICARE SUPPLEMENT [facility] Address: [facility] [address] [place] [address] [place] [address] MEDICARE PART A & B [facility] MEDICARE SUPPLEMENT [address] [place] [id number] MEDICARE PART A & B [facility] MEDICARE SUPPLEMENT MEDICARE PART A & B [facility] [place] [address] MEDICARE PART A & B [facility] MEDICARE SUPPLEMENT MEDICARE PART A & B FOR LIFE MEDICARE SUPPLEMENT Care Teams Whip Operator Relationship Specialty Start Date End Date Joyce Bond MD [address] [place] [phone] [email or web address] PCP - General Internal Medicine 04/02/23 Additional Source Comments The information contained in this document represents components of the legal health record. It is not the complete legal health record[facility]
--- OUTSIDE RECORDS SUMMARY | 2025-09-01 17:46 | XMS_ITS | Clinical Summary ---
Author Organization [facility] Address [address] [place] [address] Phone Care Team Providers Care Merchandise Buyer Name Role Phone Alexander Bond MD Primary Care Provider [phone] Allergies Active Allergy Reactions Criticality Noted Date Comments Atorvastatin Calcium 02/21/2024 Headache Lisinopril 05/06/2021 Medications aspirin 81 mg EC tablet Take 1 tablet (81 mg total) by mouth 1 (one) time. Active acetaminophen (TylenoL) 325 mg tablet Take 2 tablets (650 mg total) by mouth every 4 (four) hours if needed. Active canagliflozin-m etformin (Invokamet) 150-1,000 mg tablet Take 2 tablets by mouth 1 (one) time each day. Active cholecalciferol (VITAMIN D-3) 125 mcg (5,000 unit) capsule Take 1 capsule (5,000 Units total) by mouth 1 (one) time each day. Active cyanocobalamin (VITAMIN B-12) 1,000 mcg tablet Take 1 tablet (1,000 mcg total) by mouth 1 (one) time each day. Active Repatha Syringe 140 mg/mL syringe Inject under the skin. Active febuxostat (ULORIC) 40 mg tablet Take 1 tablet (40 mg total) by mouth 1 (one) time each day. 6 Active Lantus Solostar U-100 Insulin 100 unit/mL (3 mL) injection pen Inject under the skin. 4 Active isosorbide mononitrate (IMDUR) 30 mg 24 hr tablet Take 1 tablet (30 mg total) by mouth 1 (one) time each day. Active magnesium aspart,citrate, oxide (Triple Magnesium Complex) 400 mg magnesium capsule Take 1 capsule by mouth 1 (one) time each day. Active pantoprazole (PROTONIX) 20 mg EC tablet Take 1 tablet (20 mg total) by mouth 1 (one) time each day. Active rivaroxaban (Xarelto) 2.5 mg tablet Take 1 tablet (2.5 mg total) by mouth 2 (two) times a day with meals. 5 Active rosuvastatin (CRESTOR) 20 mg tablet Take 1 tablet (20 mg total) by mouth 1 (one) time each day. Active Ozempic 1 mg/dose (4 mg/3 mL) injection pen Inject 1 mg under the skin every 7 (seven) days. 5 Active tamsulosin (FLOMAX) 0.4 mg 24 hr capsule Take 1 capsule (0.4 mg total) by mouth 1 (one) time each day. Active nitroglycerin (NITROSTAT) 0.[address] 1 tablet (0.4 mg total) under the tongue every 5 (five) minutes if needed. Active metoprolol succinate (TOPROL-XL) 25 mg 24 hr tablet Take 0.5 tablets (12.5 mg total) by mouth 1 (one) time each day. Do not crush or chew. Active ferrous sulfate 325 mg (65 mg iron) EC tablet Take 1 tablet (325 mg total) by mouth 3 (three) times a day with meals. Do not crush, chew, or split. Active testosterone (ANDROGEL) 1 % (25 mg/2.5gram) gel in packet Place 1 packet (25 mg of testosterone total) on the skin 1 (one) time each day. Max Daily Amount: 25 mg of testosterone Active Active Problems Problem Noted Date Diagnosed Date Stage 3 chronic kidney disease ([facility] V24, [facility] V28) 04/16/2025 Bilateral carotid artery stenosis 05/06/2021 Assessment & Plan (04/17/2025 9:43 AM EDT): Followed by [facility]. Continue with aspirin, rivaroxaban, rosuvastatin, evolocumab, and isosorbide. We discussed risk reduction through lifestyle choices including healthy diet, routine exercise and weight management. Coronary artery disease of n ative artery of [place] heart with stable angina pectoris ([facility] V24) 05/06/2021 Overview (04/16/2025): two vessel obstructive coronary artery disease status post two drug eluting stents to the mid left circumflex artery with distal right coronary artery disease being treated medically 2021- worsening angina with repeat angiogram showing a distal 70% RCA stenosis status post one TIESHA Outpatient nuclear stress test performed at [facility] - he completed more than 13 minutes on a modified Yonatan protocol achieving 82% of his maximal predicted heart rate as well as a hypertensive response to exercise. There were no significant ST segment depressions or symptoms of chest discomfort. Exercise was evidently terminated due to fatigue. This study did not demonstrate any evidence of fixed or reversible perfusion defects. Calculated ejection fraction was 47% which is lower than the normal ejection fraction seen on prior assessments. Assessment & Plan (04/17/2025 9:43 AM EDT): Catheterization from 2021 showed distal RCA disease status post TIESHA. Echocardiogram from 2023 showed preserved LV systolic function LVEF 60-65%. No anginal symptoms. Given his lower blood pressures and heart rates as well as lack of angina and recent onset memory issues, I will stop his metoprolol to see if more blood pressure and heart rate improves his cognition while not causing angina. If he starts having angina I asked him to restart the metoprolol. Continue with aspirin, rivaroxaban, rosuvastatin, evolocumab, and isosorbide. We discussed risk reduction through lifestyle choices including healthy diet, routine exercise and weight management. Orders: ECG 12 lead Essential hypertension 05/06/2021 Assessment & Plan (04/17/2025 9:43 AM EDT): Controlled. Continue with isosorbide. Hyperlipidemia 05/06/2021 Assessment & Plan (04/17/2025 9:43 AM EDT): Continue with evolocumab and rosuvastatin. Hip strain 12/31/2011 Controlled diabetes mellitus type II without complication ([facility] V24, [facility] V28) 07/25/2007 Gout, unspecified 07/25/2007 Surgical History Surgery Date Site/Laterality Comments CAROTID ENDARTERECTOMY 2004 PROCEDURE: HISTORICAL CAROTID ENDART; COMMENT: Bilateral carotids with 90% stenosis CATARACT EXTRACTION 2005 PROCEDURE: HISTORICAL CATARACT REMOVAL; COMMENT: left eye CARDIAC CATHETERIZATION 2004 PROCEDURE: HISTORICAL CARDIAC CATH; COMMENT: clear coronary arteries HERNIA REPAIR 1985 PROCEDURE: HISTORICAL HERNIA REPAIR/ING; COMMENT: Left inguinal Medical History Medical History Date Comments Type II or unspecified type diabetes mellitus without mention of complication, not stated as uncontrolled 07/25/2007 DX:Type II or unspecified ty pe diabetes mellitus without mention of complication, not stated as uncontrolled Gout, unspecified 07/25/2007 DX:Gout, unspe cified Family History Medical History Relation Name Comments CABG Brother 1 1/2 brother Diabetes Father Heart attack Father Other: polio Father Relation Name Status Comments Brother 1 Brother 2 Father (Age 63) 1974 Social History Tobacco Use Types Packs/Day Years [...] on file Sexual Orientation Not on file Obstetrics History Last Filed Vital Signs Vital Sign Reading Time Taken Comments Blood Pressure 110/60 04/16/2025 3:15 PM EDT Pulse 53 04/16/2025 3:15 PM EDT Temperature - - Respiratory Rate - - Oxygen Saturation 98% 04/16/2025 3:15 PM EDT Inhaled Oxygen Concentration - - Weight 71.5 kg (157 lb 11.2 oz) 04/16/2025 3:15 PM EDT Height 180.3 cm (5' 11 ) 04/16/2025 3:15 PM EDT Body Mass Index 21.99 04/16/2025 3:15 PM EDT Plan of Treatment Health Maintenance Due Date Last Done Comments Diabetes: Annual Foot Exam 1949 Diabetes: Annual Retina Eye Exam 1950 IPV Vaccines (2 of 3 - Adult catch-up series) 04/05/1985 03/08/1985 Zoster Vaccines (1 of 2) 1989 Cholesterol Screening (Lipid Panel) 09/16/2022 Falls Risk Assessment 09/16/2022 Social Influencers of Health Screening 09/16/2022 Hypertension/CHF/CAD Annual BMP Blood Test 09/17/2022 Diabetes: Blood Sugar Control Test (HGBA1C) 09/21/2022 Medicare Annual Wellness Visit 12/08/2023 12/07/2022 Depression Screening 10/08/2024 COVID-19 Vaccine ( season) 2025 08/05/2024, 09/11/2023, 07/25/2022, Additional history exists Influenza Vaccine (#1) 2025 , 08/05/2024, 07/18/2023, Additional history exists DTaP,Tdap,and Td Vaccines (5 - Td or Tdap) 07/23/2029 07/23/2019, 05/10/2016, 07/10/2003, Additional history exists Meningococcal ACWY Vaccine Aged Out 01/23/1998 N o longer eligible based on patient's age to complete this topic Hepatitis A Vaccines Aged Out 08/14/1998, 01/23/19 98 No longer eligible based on patient's age to complete this topic MMR Vaccines Aged Out 08/31/1998 No longer eligi ble based on patient's age to complete this topic RSV Immunization Adult Patients Completed 09/11/2023 Pneumococcal Vaccine: 50+ Years Completed 12/17/2023, 11/20/2016, 03/25/2010, Additional history exists HIB Vaccines Aged Out No longer eligi ble based on patient's age to complete this topic HPV Vaccines Aged Out No longer eligi ble based on patient's age to complete this topic Hepatitis B Vaccines Aged Out No long er eligible based on patient's age to complete this topic Meningococcal B Vaccine Aged Out No l onger eligible based on patient's age to complete this topic RSV Immunization Patients Under 20 months Aged Out No longer eligible based on patient's age to complete this topic Varicella Vaccines Aged Out No longer eligible based on patient's age to complete this topic Insurance [facility] Member Subscriber Plan / Payer (Ef fective 2025-Present) Name:NATALYA MUNSON Relation to Subscriber:Self Name:Natalya Munson Payer ID:[id number] Group ID:Not on file Type:Not on file Address: [address] [id number] MEDICARE Care Teams Merchandise Buyer Relationship Specialty Start Date End Date Alexander Bond MD [address] [place] [id number] PCP - General Internal Medicine 03/05/25
== END 2025-09-01 14:44 | disposition home or self-care (01) ==
LOC: HO.HUSH 13:52
PROVIDERS: PCP Internal Medicine; Visit Provider Urology
DX: R97.20 Elevated prostate specific antigen [PSA] (principal); R39.12 Poor urinary stream
CPT/HCPCS: 99213; G2211

== ENCOUNTER → 2025-09-01 13:52 | Outpatient (BNVA) | payer MEDICARE, OTHER, SELFPAY | PROVIDERS: PCP Internal Medicine; Visit Provider Urology | DX: R97.20 Elevated prostate specific antigen [PSA] (principal); R39.12 Poor urinary stream | CPT/HCPCS: 51798; 99212 ==